=== PATIENT | female | born 1935 | race Caucasian/White ===

== ENCOUNTER 2017-01-30 12:40 | Inpatient (IN) | payer MEDICARE, BC ==
[2017-01-30] VITALS (17 sets, daily range): BP systolic 95–137; BP diastolic 44–99; PULSE 73–92; RESP 26–35; Ht 157.5 cm; Wt 113.0 kg
[~2017-01-30] VITALS: Ht 157.5 cm; Wt 113.0 kg
[2017-01-30] MEDS: DEXTROSE 5%-0.9% NACL 1,000 ML IV SCH (15:22)
[2017-01-30 16:14] LABS: HEMATOCRIT 24.6 % (37.0-47.0); HEMOGLOBIN 8.1 g/dl (12.0-16.0)
--- NOTE | 2017-01-30 16:55 | CONS ---
Date/Time of Note Date/Time of Note DATE: 01/30/17 TIME: 16:55 Assessment/Plan Assessment/Plan Chief Complaint/Hosp Course Impression 1. symptomatic anemia secondary to recurrent GIB: occult blood positive as tested by my rectal exam on 01-30-17 2. sepsis with persistent leukocytosis. Screening CT of chest/abd/pel on 2016 did not demonstrate a clear infectious process other than pneumonia 3. persistent pseudomonas in the airway 4. h/o C diff colitis in 09/2016 per Pt's family members. Although patient hasdiarrhea, C diff tests have been repeatedly negative at [facility]. 5. Respiratory failure s/p tracheostomy 6. Dysphagia s/p PEG tube with dependence Recommendations - plan for emergency EGD and colonoscopy for hemostasis for patient's recurrent GIB - management of patient's sepsis per ID - continue all other supportive care Problems: Consultation Date/Type/Reason Admit Date/Time Jan 30, 2017 at 13:13 Initial Consult Date Type of Consultation: GI 24 HR Interval Summary Free Text/Dictation transferred from [place] [facility] ICU for syptomatic anemia, continued maroon colored stool output. Subjective hx not possible: pt non-verbal Exam/Review of Systems Vital Signs Vitals Vital Signs Date Time Temp Pulse Resp B/P Pulse Ox O2 Delivery O2 Flow Rate FiO2 01/30/17 16:12 40 01/30/17 16:00 78 01/30/17 15:07 120/44 100 Mechanical Ventilator 01/30/17 14:50 97.5 28 Exam Constitutional: obese Head: atraumatic, normocephalic Eyes: nl conjunctiva, nl lids, nl sclera ENMT: mucosa pink and moist, nl external ears & nose, nl lips & teeth, nl nasal mucosa & septum Neck: non-tender, supple Respiratory: normal air movement Cardiovascular: nl pulses, regular rate and rhythm Gastrointestinal: bowel sounds, other (brown stool, guaiac positive), soft Results Result Diagram: 01/30/17 1550 Results 24 hrs Laboratory Tests Test 01/30/17 15:50 Hematocrit 24.6 L Hemoglobin 8.1 L Medications Medications Current Medications Dextrose/Sodium Chloride (D5-NS) 1,000 ml @ 100 mls/hr Q10H IV Last administered on 01/30/17t 15:22; Admin Dose 100 MLS/HR; Start 01/30/17 at 14:00 Pantoprazole (Protonix Iv) 40 mg BID@,18 IV ; Start 01/30/17 at 18:00 EDMUNDO HO MD Jan 30, 2017 16:55
[2017-01-30] MEDS ORDERED: PEG/ELECTROLYTES 4L BTL PO ONE (18:00)
[2017-01-30] MEDS ORDERED: METOCLOPRAMIDE 10 MG INJ IV ONE (18:00)
[2017-01-30] MEDS ORDERED: FLUC100T39 IVPB (19:05)
[2017-01-30] MEDS ORDERED: HYDR-906 PO (19:05)
[2017-01-30] MEDS ORDERED: ASC500 PO (19:05)
[2017-01-30] MEDS ORDERED: SPIR1TAB PO (19:05)
[2017-01-30] MEDS ORDERED: [UNRECOGNIZED DRUG - CODE] IV (19:05)
[2017-01-30] MEDS ORDERED: NYST15OI12 TOP (19:05)
[2017-01-30] MEDS ORDERED: [UNRECOGNIZED DRUG - CODE] IVPB (19:05)
[2017-01-30] MEDS ORDERED: MORP2SYR IV (19:05)
[2017-01-30] MEDS ORDERED: OLAN5TAB5 SL (19:05)
[2017-01-30] MEDS ORDERED: CARSR60 PO (19:05)
[2017-01-30] MEDS ORDERED: FURO40TA4 PO (19:05)
[2017-01-30] MEDS ORDERED: POLY17PO6 PO (19:05)
[2017-01-30] MEDS ORDERED: FOLI-49 PO (19:05)
[2017-01-30] MEDS ORDERED: ONDA4SOL2 IV (19:05)
[2017-01-30] MEDS ORDERED: MERO500V2 IVPB (19:05)
[2017-01-30] MEDS ORDERED: HYDR-3670 IV* (19:05)
[2017-01-30] MEDS ORDERED: NYST1POW22 TOPICAL (19:05)
[2017-01-30] MEDS ORDERED: LISI10TA2 PO (19:05)
[2017-01-30] MEDS ORDERED: ACID1TAB14 PO (19:05)
[2017-01-30] MEDS ORDERED: ZINC50TA2 PO (19:05)
[2017-01-30] MEDS ORDERED: HYDR-902 PO (19:05)
[2017-01-30] MEDS ORDERED: INSU100C3 SQ (19:05)
[2017-01-30] MEDS ORDERED: QUET25TA26 PO (19:05)
[2017-01-30] MEDS ORDERED: MORP1SYR2 IV (19:05)
[2017-01-30] MEDS ORDERED: LANS30CA PO (19:05)
--- NOTE | 2017-01-30 19:31 | CONS ---
Date/Time of Note Date/Time of Note DATE: 01/30/17 TIME: 18:58 Assessment/Plan Assessment/Plan Chief Complaint/Hosp Course assessment/impression - sepsis - persistent leukocytosis. 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 Pt completed an empiric course of pGT and IV metronidazole, however - TEA - VDRF s/p tracheostomy - PEG tube dependence - h/o ileus recommendations - I recommend continuing her on linezolid, meropenem; change fluconazole to caspofungin. I recommend this regimen to cover not only pseudomonas in the airway, but also the intra-abdominal nasrin broadly including yeast, VRE - will repeat pancultures if temp>100,4F management d/w Pt's DOUGH BRAKER the critical care time I took to care for this Pt today was from 1830 to 1900 - h/o lung CA and emphysema Problems: Consultation Date/Type/Reason Admit Date/Time Jan 30, 2017 at 13:13 Date of Consultation: Jan 30, 2017 Type of Consultation: ID Reason for Consultation sepsis Referring Provider: BECKY RUIZ MD Hx of Present Illness This is an 81 yo female with h/o lung CA and GI bleed who was originally admitted at [facility] in 12/2016 due to sepsis. She had a protracted ICU course there. She had pseudomonas pneumonia and funguria, for which she received pip/tazo and fluconazole respectively. She failed to be weaned off from the ventilator and eventually underwent tracheostomy followed by PEG placement. Pt did not tolerate tube feed due to ileus resulting in high residual. At that time, Pt developed severe leukocytosis. Her infectious disease workup was significant for persistent pseudomonas in the airway. While in ICU, the developed loose stool and a rectal tube was placed. Her family indicated that she has h/o GIB in the past. They also mentioned that Pt had C diff in 09/2016. Her C diff test at [facility] was repeatedly negative. She completed a trial of anti-C diff colitis treatment (pGT vancomycin and IV metronidazole). She was eventually transferred to [facility] for further care. Her C diff test at [facility] has been also negative, as recently as 01/27/2017. This week, Pt's WBC level continues to rise. Her GFR also worsened. Her latest pancultures was significant for persistent pseudomonas in the airway, yeast and VRE in urine. Her screening CT of chest/abd/pel on 01/27/2017 did not demonstrate a clear infectious process other than pneumonia. Given her worsening renal function and persistent leukocytosis, Pt was started on broad spectrum antimicrobials there consisting of linezolid, meropenem and fluconazole. Yesterday, Pt's RN at [facility] noted BRBPR. Today, Pt passed dark stool per rectum. Pt was transferred to ICU for close monitoring. Once in ICU, Pt's RN noted brown stool mixed with mucus. No BRBPR was noted. She is scheduled to undergo EGD and colonoscopy tomorrow. I evaluated Pt for continuity of care. At [facility], Subjective hx not possible: pt non-verbal (nearly non-verbal), pt critical, pt critical status Constitutional: chills Respiratory: No shortness of breath Cardiovascular: no complaints Gastrointestinal: no complaints Past Medical History Medical History: cancer, colitis, renal disease, other (GIB) Past Surgical History Past Surgical Hx: cholecystectomy, other (trach, PEG) Social History Alcohol Use: none Smoking Status: Unknown if ever smoked Drug Use: none Exam/Review of Systems Vital Signs Vitals Vital Signs Date Time Temp Pulse Resp B/P Pulse Ox O2 Delivery O2 Flow Rate FiO2 01/30/17 17:30 75 30 112/47 100 Mechanical Ventilator 01/30/17 16:12 40 01/30/17 14:50 97.5 Exam Constitutional: frail, non-verbal, obese Psych: confusion Head: atraumatic, normocephalic Eyes: nl conjunctiva, nl lids ENMT: nl external ears & nose, nl nasal mucosa & septum Neck: other (trach) Respiratory: crackles/rales Cardiovascular: nl pulses, regular rate and rhythm Gastrointestinal: non-tender, other (PEG), soft, No distended Genitourinary - Female: other (FC) Musculoskeletal: No swelling Extremities: edema Neurological: confused, lethargic Skin: ecchymosis Results Result Diagram: 01/30/17 1550 Results 24 hrs Laboratory Tests Test 01/30/17 15:50 Hematocrit 24.6 L Hemoglobin 8.1 L Medications Medications Current Medications Dextrose/Sodium Chloride (D5-NS) 1,000 ml @ 100 mls/hr Q10H IV Last administered on 01/30/17t 15:22; Admin Dose 100 MLS/HR; Start 01/30/17 at 14:00 Pantoprazole (Protonix Iv) 40 mg BID@06,18 IV ; Start 01/30/17 at 18:00 VERN WOODS M.D. Jan 30, 2017 19:12
[2017-01-30] MEDS: PANTOPRAZOLE 40 MG INJ IV SCH (20:05)
[2017-01-30] MEDS ORDERED: CASPOFUNGIN 70 MG in SOD CHLORIDE 0.9% 250 ML IVPB ONE (20:15)
[2017-01-30] MEDS: MEROPENEM 500 MG/100 ML (PMX) 100 ML IVPB SCH (21:32)
[2017-01-30] MEDS: LINEZOLID 600 MG/D5W (PMX) 300 ML IVPB SCH (22:04)
[2017-01-31] VITALS (40 sets, daily range): BP systolic 84–131; BP diastolic 30–71; PULSE 71–95; RESP 16–35
[2017-01-31] MEDS: DEXTROSE 5%-0.9% NACL 1,000 ML IV SCH ×3 (02:36→19:24)
[2017-01-31] MEDS ORDERED: PEG/ELECTROLYTES 4L BTL PO ONE (03:00)
[2017-01-31 04:59] LABS: ADD SCAN DIFF NO
[2017-01-31 05:07] LABS: AADO2 Arterial 103.8 mmHg (7.0-24.0); Allen Test ACCEPTAB; Arterial Base Excess -4.1 mmol/L (-3.0-3); Arterial COHb 0.3 % (0.0-3.0); Arterial Fraction of Oxyhgb 96.4 % (93.0-99.0); Arterial HCO3 21.2 mmol/L (22.0-26.0); Arterial MetHb 0.6 % (0.0-1.5); Arterial Total Hemglobin 9.5 g/dl (12.0-18.0); MODE VENT-AC
[2017-01-31] MEDS: PANTOPRAZOLE 40 MG INJ IV SCH (05:08)
[2017-01-31 05:19] LABS: ABNORMAL IP MESSAGE 1; HEMATOCRIT 25.3 % (37.0-47.0); HEMOGLOBIN 8.3 g/dl (12.0-16.0); MEAN CORPUSCULAR HEMOGLOBIN 29.7 pg (29.0-33.0); MEAN CORPUSCULAR HGB CONC 32.8 g/dl (32.0-37.0); MEAN CORPUSCULAR VOLUME 90.7 fl (82.0-101.0); PLATELET COUNT 392 10^3/UL (140-415); RED BLOOD COUNT 2.79 10^6/ul (4.20-5.40); RED CELL DISTRIBUTION WIDTH 19.9 % (11.5-14.5); WHITE BLOOD COUNT 29.3 10^3/ul (4.8-10.8)
[2017-01-31 05:25] LABS: INR 1.19; PROTIME 15.2 Sec (12.2-14.2); PT RATIO 1.2
[2017-01-31 05:26] LABS: PARTIAL THROMBOPLASTIN TIME 32.9 Sec (25.0-35.0)
[2017-01-31 05:28] LABS: POTASSIUM 4.9 mmol/L (3.5-5.1)
[2017-01-31 05:30] LABS: CREATININE 3.22 mg/dl (0.44-1.00)
[2017-01-31 05:31] LABS: CALCIUM 8.5 mg/dl (8.4-10.2); PHOSPHORUS 3.8 mg/dl (2.5-4.9)
[2017-01-31] MEDS: MEROPENEM 500 MG/100 ML (PMX) 100 ML IVPB SCH ×2 (08:13→20:50)
--- NOTE | 2017-01-31 10:02 | HP ---
Date/Time of Note Date/Time of Note DATE: 01/31/17 TIME: 09:58 Assessment/Plan VTE Prophylaxis VTE Prophylaxis Intervention: heparin Lines/Catheters IV [facility]ter Type (from [facility]): Peripheral IV Urinary Cath still in place: Yes Reason Cath still needed: urinary retention Assessment/Plan Chief Complaint/Hosp Course 1. Active GIB- h/h stable, endoscopy today, cont IV PPI, watch h/h. 2. chronic resp failure- on vent, cxr and abg reveiwed. 3. dysphagia- hold feeds for now 4. htn 5. encephalopathy-at baseline 6. anemia- sc to blood loss, monitor, no transfusion for now, GI following. Problems: HPI/ROS Admit Date/Time Admit Date/Time Jan 30, 2017 at 13:13 Hx of Present Illness 82 y/o female was sent from [facility] after noted to have actibe recatl bleeding. On transfer to ICU had no longer bleeding. Pt. was seen by GI and scheduled for endospcopy. H/H has remianed stable on IV protonix Pt. now comfortable on vent, awake, hemodynamically stable. ROS Constitutional: no complaints ENT: no complaints Respiratory: no complaints, No shortness of breath Cardiovascular: no complaints Gastrointestinal: blood, diarrhea, no complaints, passing stool Endocrine: no complaints Psychological: confusion PMH/Family/Social Past Medical History Medical History: cancer, colitis, renal disease, other (GIB) Past Surgical History Past Surgical Hx: cholecystectomy, other (trach, PEG) Social History Alcohol Use: none Smoking Status: Unknown if ever smoked Drug Use: none Exam/Review of Systems Vital Signs Vitals Vital Signs Date Time Temp Pulse Resp B/P Pulse Ox O2 Delivery O2 Flow Rate FiO2 01/31/17 08:00 80 01/31/17 07:30 99.1 27 107/51 100 Mechanical Ventilator 01/31/17 05:23 35 Intake and Output 01/30/17 01/30/17 01/31/17 15:00 23:00 07:00 Intake Total 2000 ml 2000 ml Output Total 150 ml 120 ml Balance 1850 ml 1880 ml Exam Constitutional: alert, non-verbal Psych: no complaints Eyes: EOMI, PERRL, nl conjunctiva, nl lids, nl sclera Neck: non-tender, other (Trach midline), supple Respiratory: diminished breath sounds Gastrointestinal: non-tender, other (G-Tubne in place), soft Genitourinary - Male: No CVA tenderness, No discharge, No nl penis, No nl scrotum, No other Extremities: normal pulses Labs Result Diagram: 01/31/1743101/31/17431 Medications Medications Current Medications Dextrose/Sodium Chloride (D5-NS) 1,000 ml @ 100 mls/hr Q10H IV Last administered on 01/31/17 02:36; Admin Dose 100 MLS/HR; Start 01/30/17 at 14:00 Pantoprazole 40 mg 40 mg BID@06,18 IV Last administered on 01/31/17 05:08; Admin Dose 40 MG; Start 01/30/17 at 18:00 Meropenem 100 ml @ 200 mls/hr Q12 IVPB Last administered on 01/31/17 08:13; Admin Dose 200 MLS/HR; Start 01/30/17 at 21:00 Caspofungin 50 mg/ Sodium Chloride 250 ml @ 250 mls/hr Q24H IVPB ; Start at 18:00 Linezolid (Zyvox 600mg/D5W (Pmx)) 300 ml @ 300 mls/hr Q12 IVPB Last administered on 01/30/17 22:04; Admin Dose 300 MLS/HR; Start 01/30/17 at 21:00 BECKY RUIZ MD Jan 31, 2017 10:02
[2017-01-31] MEDS: LINEZOLID 600 MG/D5W (PMX) 300 ML IVPB SCH ×2 (10:28→21:39)
[2017-01-31 10:32] LABS: LYMPHOCYTES # 2.3 10^3/ul (0.8-2.9); MONOCYTE # 1.2 10^3/ul (0.3-0.9); MYELOCYTES # 0.9; NEUTROPHIL # 18.8 10^3/ul (1.6-7.5)
--- NOTE | 2017-01-31 11:31 | OPR ---
Date/Time of Note Date/Time of Note DATE: 01/31/17 TIME: 11:27 Operative Report Free Text/Dictation Impression: 1. mild distal esophagitis 2. intact G-tube bumper 3. external anal ear tags and hemorrhoids 4. internal hemorrhoids Recommendation: 1. no active GI bleeding 2. consider surgical eval for hemorrhoids as it is the most likely cause if it is GI bleeding 3. consider Block Sawyer eval to r/o Block Sawyer causes of bleeding as 2 colonoscopies done at different facility by 2 different endoscopists did not reveal source of patient' s GI bleed. One will need to consider Block Sawyer bleeding. Procedure Date: Jan 31, 2017 Preoperative Diagnosis hematochezia, anemia requiring blood transfusion Operation Performed EGD, colonoscopy with biopsies Anesthesia: MAC Estimated Blood Loss: minimal Complications: None Pt Condition Post Procedure: stable Disposition: other (ICU bed) Indications hematochezia, anemia requiring blood transfusion Operative Findings EGD: mild distal esophagitis. Colonoscopy: 1. moderate sized internal hemorrhoids 2. external anal ear-tags and hemorrhoids 3. scattered diverticula on left colon Procedure Description After informed consent and time out, we inserted an adult EGD scope from the mouth and advanced to the second portion of the duodenum. Retroflexion was performed in the body of stomach revealing cardia and fundus. Air was then suctioned out while evaluating the esophagus. At the completion of the EGD, patient was turned around for colonoscopy. Rectal exam showed elephant ear tags and thrombosed external hemorrhoids. I then inserted a colonoscope from the rectum and advanced to the cecum at 80 cm. I then slowly withdraw the colonoscope, examined the colon circumferentially, and suctioned out air. There were few scatter diverticula in the left colon which were not bleeding. There were few small grayish discolorization in the transverse colon and right colon that were not bleeding and of unclear significance. Retroflexion was performed in the rectum revealing moderate sized internal hemorrhoids. EDMUNDO HO MD Jan 31, 2017 11:31
[2017-01-31] MEDS ORDERED: PROPOFOL 20 ML ONE (12:16)
[2017-01-31] MEDS ORDERED: HYDROCODONE/APAP (5/325) TAB GTB PRN (13:00)
[2017-01-31] MEDS ORDERED: POLYETHYLENE GLYCOL 17 GM PACKET GTB PRN (13:00)
[2017-01-31] MEDS ORDERED: ONDANSETRON 4 MG INJ IV PRN (13:00)
[2017-01-31] MEDS ORDERED: QUETIAPINE 25 MG TAB GTB PRN (13:00)
[2017-01-31] MEDS ORDERED: hydrALAzine 20 MG INJ IV PRN (13:00)
[2017-01-31] MEDS ORDERED: morphine 2 MG INJ IV PRN ×2 (13:00)
[2017-01-31] MEDS: HYDROCODONE/APAP (5/325) TAB GTB PRN (13:42)
[2017-01-31] MEDS ORDERED: DEXTROSE 50% 50 ML SYRINGE IV PRN ×2 (14:00)
[2017-01-31] MEDS ORDERED: GLUCOSE GEL 15 GRAM TUBE BUCCAL PRN (14:00)
[2017-01-31] MEDS ORDERED: GLUCOSE GEL 15 GRAM TUBE PO PRN ×2 (14:00)
[2017-01-31] MEDS ORDERED: GLUCAGON 1 MG INJ IM PRN (14:00)
[2017-01-31] MEDS: LACTOBACILLUS CHEW TAB GTB SCH ×2 (14:17→20:43)
--- NOTE | 2017-01-31 16:03 | CONS ---
DATE OF ADMISSION: 01/30/2017 DATE OF CONSULTATION: 01/31/2017 TYPE OF CONSULTATION: Pulmonary. HISTORY OF PRESENT ILLNESS: Briefly, this is an 81-year-old lady with multiple medical problems inc luding chronic respiratory failure on mechanical ventilation, encephalopathy, hypertension, COPD, re sident of [facility] who was transferred yesterday due to rectal bleeding. The pat ient has remained hemodynamically stable thus far during her ICU stay and her hemoglobin has been re latively stable as well. PAST MEDICAL HISTORY: As noted above. In addition, history of cancer, colitis, renal disease. PAST SURGICAL HISTORY: Cholecystectomy, PEG and trach. SOCIAL HISTORY: No tobacco, alcohol or illicit drug use. FAMILY HISTORY: Noncontributory. REVIEW OF SYSTEMS: Unable to obtain. PHYSICAL EXAMINATION: GENERAL: Generally elderly female, trach dependent on mechanical ventilation. VITAL SIGNS: Blood pressure is 126/46, heart rate is 77, oxygen saturation 100% on 35% FIO2. HEENT: Tracheostomy site is clear. There is no drainage or purulence, no lymphadenopathy. CARDIOVASCULAR: Regular rate and rhythm, S1 and S2, 2/6 systolic murmur heard at the apex. CHEST: There is coarse breath sounds and some rhonchi heard bilaterally. ABDOMEN: Soft. G-tube site is intact. No hepatosplenomegaly. EXTREMITIES: There is normal pulses and no cyanosis. LABORATORY DATA: WBC is 29.3, hemoglobin 8.3, platelets are 392, BUN is 80, creatinine is 3.2. Coa gs are 1.12. ABG: pH is 7.35, pCO2 is 40, pO2 is 100 on 35% FIO2. IMPRESSION: 1. Hematochezia, possibly due to a brisk upper gastrointestinal versus lower GI bleed. Currently, H and H has been stable. The patient remains on IV PPI and is being evaluated for endoscopy by anita roenterology. 2. Ventilator-dependent respiratory failure appears to be stable from that perspective. 3. Leukocytosis, etiology unclear. It appears that this is somewhat chronic. In view of the patie nt's clinical stability, must consider Clostridium difficile colitis. 4. Chronic kidney disease. 5. History of lung cancer status post lobectomy. 6. Anemia. 7. Hypertension, possible history of congestive heart failure. RECOMMENDATIONS: 1. Serial H and H's. 2. Continue mechanical ventilatory support. 3. PPI drip. 4. Await upper endoscopy and colonoscopy by GI. 5. Will hold tube feeds for the time being. Dictated By: MYCHAL CORNEJO MD NK/NTS Conf#: [id number] DID#: [id number] CC: JD TORRES MD;*EndCC*
--- NOTE | 2017-01-31 16:49 | CONS ---
GIULIANA GARCIA SOFTWARE ASSET MANAGER 01/31/17 1648: Date/Time of Note Date/Time of Note DATE: 01/31/17 TIME: 16:42 Assessment/Plan Assessment/Plan Chief Complaint/Hosp Course Assessment/Impression: - sepsis - persistent leukocytosis. 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 Pt completed an empiric course of pGT and IV metronidazole, however - mild distal esophagitis S/p EGD 01/31/17 - moderate sized internal hemorrhoids, external anal ear-tags and hemorrhoids, scattered diverticula on left colon S/p colonoscopy 01/31/17 - TEA - VDRF with tracheostomy - PEG tube dependence - h/o ileus - h/o lung CA and emphysema - chronic encephalopathy Recommendations: - continue linezolid and meropenem - continue caspofungin (01/30/17-); s/p fluconazole. This regimen is recommended to cover not only pseudomonas in the airway, but also the intra-abdominal nasrin broadly including yeast, VRE - repeat pancultures if temp>100.4 F - management d/w CHANGE MANAGEMENT ANALYST - Above d/w Dr. Desai - Critical care time spent: 35 minutes Problems: Consultation Date/Type/Reason Admit Date/Time Jan 30, 2017 at 13:13 Initial Consult Date 01/30/17 Type of Consultation: Infectious Disease Referring Provider: BECKY RUIZ MD 24 HR Interval Summary Free Text/Dictation S/p EGD and colonoscopy today with no active bleeding noted per RN Yordy. ROS limited d/t chronic encephalopathy; Pt remains non-communicative; afebrile. Exam/Review of Systems Vital Signs Vitals Vital Signs Date Time Temp Pulse Resp B/P Pulse Ox O2 Delivery O2 Flow Rate FiO2 01/31/17 16:00 84 01/31/17 14:00 35 91/61 100 Mechanical Ventilator 01/31/17 11:30 35 01/31/17 11:00 98.8 Intake and Output 01/30/17 01/30/17 01/31/17 15:00 23:00 07:00 Intake Total 2000 ml 2100 ml Output Total 150 ml 120 ml Balance 1850 ml 1980 ml Exam Constitutional: alert, frail, obese (morbidly obese), well developed Head: atraumatic, normocephalic Eyes: nl conjunctiva ENMT: nl external ears & nose Neck: other (tracheostomy midline without leak), supple Respiratory: diminished breath sounds, normal air movement, other (coarse breath sounds) Cardiovascular: regular rate and rhythm Gastrointestinal: bowel sounds, non-tender, other (G- tube clamped and intact) , soft Genitourinary - Female: other (ramon catheter intact with clear yellow urine) Musculoskeletal: muscle weakness, other (bed bound) Extremities: edema (Right hand and BLE), other (DP difficult to palpate), pitting pedal edema Neurological: confused, lethargic, other (Opens eyes to verbal and tactile stimuli; + tracking; no commands) Results Result Diagram: 01/31/17 0432 01/31/17 0432 Results 24 hrs Laboratory Tests Test 01/31/17 04:32 01/31/17 04:50 01/31/17 05:00 Anion Gap 20 H Band Neutrophils % 19.0 H Basophils # Basophils % Blood Urea Nitrogen 80 H Calcium Level 8.5 Carbon Dioxide Level 22 Chloride Level 97 Creatinine 3.22 H Differential Comment MANUAL DIFF Eosinophils # Eosinophils % Glucose Level 96 Hematocrit 25.3 L Hemoglobin 8.3 L Lymphocytes # 2.3 Lymphocytes % 8.0 L Magnesium Level 2.0 Mean Corpuscular Hemoglobin 29.7 Mean Corpuscular Hemoglobin Concent 32.8 Mean Corpuscular Volume 90.7 Mean Platelet Volume 11.0 H Metamyelocytes # 0.6 Metamyelocytes % 2.0 H Monocytes # 1.2 H Monocytes % 4.0 Myelocytes # 0.9 Myelocytes % 3.0 H Neutrophils # 18.8 H Neutrophils % 64.0 Nucleated Red Blood Cells # Nucleated Red Blood Cells % Phosphorus Level 3.8 Platelet Count 392 # Potassium Level 4.9 Red Blood Count 2.79 L Red Cell Distribution Width 19.9 H Sodium Level 134 L White Blood Count 29.3 #H Activated Partial Thromboplast Time 32.9 INR International Normalized Ratio 1.19 Prothrombin Time 15.2 H Prothrombin Time Ratio 1.2 Arterial Blood HCO3 21.2 L Arterial Blood Base Excess -4.1 L Arterial Blood Oxygen Saturation 97.3 [place] Test ACCEPTAB Arterial Blood Gas Puncture Site Right Radial Arterial Blood Carboxyhemoglobin 0.3 Arterial Blood Date Drawn 01/31/2017 4:38:59 AM Arterial Blood Methemoglobin 0.6 Arterial Blood pCO2 (Temp correct) 39.5 Arterial Blood pH (Temp corrected) 7.347 L Arterial Blood pO2 (Temp corrected) 99.8 H Blood Gas A-a O2 Differential 103.8 H Blood Gas Actual Respiration Rate 35 Blood Gas Inspiratory Pressure 43.0 Blood Gas Low PEEP Setting 5.0 Blood Gas Modality VENT-AC Blood Gas Notified Time 01/31/2017 5:06:48 AM Blood Gas Notified Whom JMD Blood Gas Respiration Rate 35.0 Blood Gas Specimen Source Blood arterial Blood Gas Temperature 37.0 Blood Gas Tidal Volume 450.0 FiO2 35.0 Oxyhemoglobin Percent 96.4 Total Hemoglobin 9.5 L Medications Medications Current Medications Dextrose/Sodium Chloride 1,000 ml @ 100 mls/hr Q10H IV Last administered on 10:29; Admin Dose 100 MLS/HR; Start 01/30/17 at 14:00 Meropenem 100 ml @ 200 mls/hr Q12 IVPB Last administered on 01/31/17 08:13; Admin Dose 200 MLS/HR; Start 01/30/17 at 21:00 Caspofungin 50 mg/ Sodium Chloride 250 ml @ 250 mls/hr Q24H IVPB ; Start at 18:00 Linezolid (Zyvox 600mg/D5W (Pmx)) 300 ml @ 300 mls/hr Q12 IVPB Last administered on 01/31/17 10:28; Admin Dose 300 MLS/HR; Start 01/30/17 at 21:00 Lansoprazole (Prevacid) 30 mg BID@06,18 GTB ; Start 01/31/17 at 18:00 Ascorbic Acid (Vitamin C) 500 mg DAILY GTB ; Start 02/01/17 at 09:00 Folic Acid (Folic Acid) 1 mg DAILY GTB ; Start 02/01/17 at 09:00 Hydralazine HCl (Apresoline) 10 mg Q6H PRN IV ELEVATED BLOOD PRESSURE; Start at 13:00 Acetaminophen/ Hydrocodone Bitart ([place] (5/325)) 1 tab Q6H PRN GTB PAIN LEVEL 1-5 Last administered on 01/31/17 13:42; Admin Dose 1 TAB; Start 01/31/17 at 13: 00 Acetaminophen/ Hydrocodone Bitart ([place] (5/325)) 2 tab Q6H PRN GTB PAIN LEVEL 6-10; Start 01/31/17 at 13:00 Insulin Aspart (Novolog Insulin Pen) NOVOLOG *MILD* ALGORITHM Q6 SC ; Start 01/31 at 18:00 Lactobacillus Acidoph/Bulgaricus (Floranex) 1 tab TID GTB Last administered on 01/31/17 14:17; Admin Dose 1 TAB; Start 01/31/17 at 13:00 Lisinopril (Zestril) 10 mg BID GTB ; Start 01/31/17 at 21:00 Morphine Sulfate (morphine) 1 mg Q2H PRN IV PAIN LEVEL 1-5; Start 01/31/17 at 13 :00 Morphine Sulfate (morphine) 2 mg Q2H PRN IV SEVERE PAIN LEVEL 7-10; Start at 13:00 Nystatin (Nystatin Cr) 1 applic BID TOP ; Start 01/31/17 at 21:00 Nystatin (Nystatin Powder) 1 applic BID TOP ; Start 01/31/17 at 21:00 Olanzapine (Zyprexa Zydis) 2.5 mg BID SL ; Start 01/31/17 at 21:00 Ondansetron HCl (Zofran Inj) 4 mg Q6H PRN IV NAUSEA AND/OR VOMITING; Start 01/31 at 13:00 Quetiapine Fumarate (Seroquel) 25 mg Q6 PRN GTB PSYCHOSIS; Start 01/31/17 at 13: 00 Polyethylene Glycol (Miralax) 17 gm DAILY PRN GTB CONSTIPATION; Start 01/31/17 at 13:00 Zinc Sulfate (Zinc Sulfate) 220 mg DAILY GTB ; Start 02/01/17 at 09:00 Miscellaneous Information 1 ea NOTE XX ; Start 01/31/17 at 14:00 Glucose (Glutose) 15 gm Q15M PRN PO DECREASED GLUCOSE; Start 01/31/17 at 14:00 Glucose (Glutose) 22.5 gm Q15M PRN PO DECREASED GLUCOSE; Start 01/31/17 at 14:00 Dextrose (D50w Syringe) 25 ml Q15M PRN IV DECREASED GLUCOSE; Start 01/31/17 at 14:00 Dextrose (D50w Syringe) 50 ml Q15M PRN IV DECREASED GLUCOSE; Start 01/31/17 at 14:00 Glucagon (Glucagen) 1 mg Q15M PRN IM DECREASED GLUCOSE; Start 01/31/17 at 14:00 Glucose (Glutose) 15 gm Q15M PRN BUCCAL DECREASED GLUCOSE; Start 01/31/17 at 14: 00 Diltiazem HCl (Cardizem) 30 mg Q6 GTB ; Start 01/31/17 at 18:00 Procedures Procedures Abdomen X-ray 01/29/17: 1. Previous right upper quadrant abdominal surgery. A gastrostomy tube is seen to be in place. 2. The bowel gas pattern reflects a mild ileus. 3. Interstitial infiltrate seen at the left lung base. TTE 01/21/17: 1. Normal left ventricular systolic function. Normal left ventricular cavity size. Mild concentric left ventricular hypertrophy. Ejection fraction is visually estimated at 65 -70 %. 2. The left atrium is normal in size. 3. Normal appearance and function of the mitral valve with trace physiologic regurgitation. 4. Normal appearance of the aortic valve. No significant aortic stenosis or insufficiency. 5. Normal appearance of the tricuspid valve. Estimated peak PA systolic pressure 46 mmHg. There is mild tricuspid regurgitation. 6. Inferior vena cava without respiratory collapse, however, patient on ventilator. VERN DESAI M.D. 02/01/17 1018: Assessment/Plan Assessment/Plan Additional Assessment/Plan Lloyd attestation: I discussed the management with TELLO Garcia and agree with above Exam/Review of Systems Results Result Diagram: 01/31/17 0432 01/31/17 0432 GIULIANA GARCIA NP Jan 31, 2017 16:48 VERN DESAI M.D. Feb 01, 2017 10:18
[2017-01-31] MEDS ORDERED: DILTIAZEM (SR) 90 MG CAP PO SCH (18:00)
[2017-01-31] MEDS: INSULIN ASPART [NOVOLOG] 3 ML PEN SC SCH ×2 (18:00→23:27)
[2017-01-31] MEDS: DILTIAZEM 30 MG TAB GTB SCH ×2 (18:02→23:27)
[2017-01-31] MEDS: LANSOPRAZOLE 30 MG CAP GTB SCH (18:02)
[2017-01-31] MEDS: FUROSEMIDE 40 MG TAB GTB SCH (18:02)
[2017-01-31] MEDS: CASPOFUNGIN 50 MG in SOD CHLORIDE 0.9% 250 ML IVPB SCH (18:06)
[2017-01-31] MEDS: SPIRONOLACTONE 25 MG TAB NGT SCH (18:13)
[2017-01-31] MEDS: OLANZAPINE (ODT) 5 MG TAB SL SCH (20:43)
[2017-01-31] MEDS: NYSTATIN 30 GM POWDER BTL TOP SCH (20:44)
[2017-01-31] MEDS: NYSTATIN 15 GM CR TOP SCH (20:44)
[2017-01-31] MEDS ORDERED: LISINOPRIL 10 MG TAB GTB SCH (21:00)
[2017-02-01] VITALS (36 sets, daily range): BP systolic 77–140; BP diastolic 34–104; PULSE 68–96; RESP 14–35
[2017-02-01 04:49] LABS: AADO2 Arterial 84.3 mmHg (7.0-24.0); Allen Test ACCEPTAB; Arterial Base Excess -6.3 mmol/L (-3.0-3); Arterial COHb 0 % (0.0-3.0); Arterial Fraction of Oxyhgb 97.4 % (93.0-99.0); Arterial HCO3 18.4 mmol/L (22.0-26.0); Arterial MetHb 0.7 % (0.0-1.5); Arterial Total Hemglobin 8.6 g/dl (12.0-18.0); MODE VENT - AC
[2017-02-01] MEDS: SPIRONOLACTONE 25 MG TAB NGT SCH ×2 (05:27→18:00)
[2017-02-01] MEDS: LANSOPRAZOLE 30 MG CAP GTB SCH ×2 (05:27→18:00)
[2017-02-01] MEDS: FUROSEMIDE 40 MG TAB GTB SCH (05:27)
[2017-02-01] MEDS: DEXTROSE 5%-0.9% NACL 1,000 ML IV SCH (05:28)
[2017-02-01] MEDS: INSULIN ASPART [NOVOLOG] 3 ML PEN SC SCH ×3 (05:48→17:51)
[2017-02-01] MEDS: DILTIAZEM 30 MG TAB GTB SCH ×3 (05:58→18:00)
[2017-02-01 06:01] LABS: ADD SCAN DIFF NO
[2017-02-01 06:04] LABS: ABNORMAL IP MESSAGE 1; HEMATOCRIT 23.1 % (37.0-47.0); HEMOGLOBIN 7.6 g/dl (12.0-16.0); MEAN CORPUSCULAR HEMOGLOBIN 30.3 pg (29.0-33.0); MEAN CORPUSCULAR HGB CONC 32.9 g/dl (32.0-37.0); MEAN PLATELET VOLUME 10.9 fl (7.4-10.4); PLATELET COUNT 351 10^3/UL (140-415); RED BLOOD COUNT 2.51 10^6/ul (4.20-5.40); RED CELL DISTRIBUTION WIDTH 20.4 % (11.5-14.5); WHITE BLOOD COUNT 26.1 10^3/ul (4.8-10.8)
[2017-02-01 06:34] LABS: POTASSIUM 4.1 mmol/L (3.5-5.1)
[2017-02-01 06:37] LABS: CREATININE 3.02 mg/dl (0.44-1.00)
[2017-02-01 06:38] LABS: CALCIUM 8.2 mg/dl (8.4-10.2)
--- NOTE | 2017-02-01 07:02 | RADRPT ---
PROCEDURE: XR Chest. CLINICAL INDICATION: Respiratory failure TECHNIQUE: Portable single view of the chest COMPARISON: 01/27 FINDINGS: Tracheostomy tube again overlies the airway. The heart size remains slightly enlarged. Aortic calc ification is seen. Lung volumes are slightly improved. Coarse lung markings are again seen. No la rge effusion is evident. Aortic calcification. IMPRESSION: Slightly improved lung volumes. Otherwise stable exam. RPTAT: HLBE Coleen Mcdonald Physician Date Time Electronically viewed and signed by Coleen Mcdonald, Physician on 02/01/2017 07:01 LE/
--- NOTE | 2017-02-01 07:52 | CONS ---
Date/Time of Note Date/Time of Note DATE: 02/01/17 TIME: 07:47 Assessment/Plan Assessment/Plan Additional Assessment/Plan Ventilator settings; AC of 35, tidal volume 450, PEEP of 5, 35% FiO2. Chest x-ray was reviewed from today which is showing volume loss in the left lower lobe. There is bilateral interstitial pattern present. Assessment recommendations; next 1. Patient admitted for lower GI bleed which has been attributed to hemorrhoids. Next 2. Slight drop in hematocrit. 3. Chronic respiratory failure with severe hypercapnia owing to end-stage COPD as well as history of left lower lobectomy due to lung malignancy. 4. Renal failure. 5. CHF. Which is clinically compensated. 6. Stable hypertension. Next 7. Prior history of cholecystectomy, PEG tube placement as well as tracheostomy. 8. Mild anoxic enthesopathy. 9. Mild metabolic acidosis likely attributed to underlying renal insufficiency. Continue current treatment. Add sodium bicarb 650 mg 3 times daily via PEG tube. If there is any further drop in hematocrit patient will need to have a blood transfusion. Overall prognosis remains very poor. Consultation Date/Type/Reason Admit Date/Time Jan 30, 2017 at 13:13 Initial Consult Date 01/30/17 Type of Consultation: Pulmonary/critical care Referring Provider: BECKY RUIZ MD 24 HR Interval Summary Free Text/Dictation Patient condition remains stable. She is awake on ventilator via tracheostomy. No untoward events reported. General examination; elderly lady, on ventilator via tracheostomy awake currently in no distress. Exam/Review of Systems Vital Signs Vitals Vital Signs Date Time Temp Pulse Resp B/P Pulse Ox O2 Delivery O2 Flow Rate FiO2 02/01/17 07:26 95 35 100 35 02/01/17 06:00 105/34 Mechanical Ventilator 02/01/17 04:00 98.1 Intake and Output 01/31/17 01/31/17 02/01/17 15:00 23:00 07:00 Intake Total 1050 ml 1015 ml 585 ml Output Total 123 ml 150 ml 125 ml Balance 927 ml 865 ml 460 ml Exam H EENT examination; supple neck, JVD difficult to see because of short neck. No thyromegaly. No neck masses. Trachea ostomy in place with clean insertion site. Pupils are midsize and reactive to light bilaterally. Patient does not multiple carious teeth. No neck bruits. Chest examination; diminished but clear breath sounds bilaterally. S1-S2 audible, no murmurs. Regular rhythm. Abdomen examination; soft, protuberant. No organomegaly. G-tube in place. Bowel sounds audible. Extremity examination; 1+ pitting edema involving lower extremities bilaterally. BUCKLE INSPECTOR examination; patient is awake. Follows very simple commands like moving arms. Results Result Diagram: 02/01/17 0535 02/01/17 0535 Results 24 hrs Laboratory Tests Test 01/31/17 18:04 01/31/17 23:24 02/01/17 05:00 02/01/17 05:34 Bedside Glucose 123 152 135 Arterial Blood HCO3 18.4 L Arterial Blood Base Excess -6.3 L Arterial Blood Oxygen Saturation 98.1 [place]olome Test ACCEPTAB Arterial Blood Gas Puncture Site Right Radial Arterial Blood Carboxyhemoglobin 0 Arterial Blood Date Drawn 02/01/2017 4:27:18 AM Arterial Blood Methemoglobin 0.7 Arterial Blood pCO2 (Temp correct) 33.3 L Arterial Blood pH (Temp corrected) 7.361 Arterial Blood pO2 (Temp corrected) 126.5 H Blood Gas A-a O2 Differential 84.3 H Blood Gas Actual Respiration Rate 35 Blood Gas Inspiratory Pressure 41.0 Blood Gas Low PEEP Setting 5.0 Blood Gas Modality VENT - AC Blood Gas Notified Time 02/01/2017 4:49:09 AM Blood Gas Notified Whom RTR Blood Gas Respiration Rate 35.0 Blood Gas Specimen Source Blood arterial Blood Gas Temperature 37.0 Blood Gas Tidal Volume 450.0 FiO2 35.0 Oxyhemoglobin Percent 97.4 Total Hemoglobin 8.6 L Test 02/01/17 05:35 Anion Gap 20 H Basophils # 0.0 Basophils % 0.2 Blood Urea Nitrogen 78 H Calcium Level 8.2 L Carbon Dioxide Level 18 L Chloride Level 98 Creatinine 3.02 H Eosinophils # 0.1 Eosinophils % 0.2 Glucose Level 108 Hematocrit 23.1 L Hemoglobin 7.6 L Lactic Acid Level 1.4 Lymphocytes # 1.8 Lymphocytes % 6.7 L Mean Corpuscular Hemoglobin 30.3 Mean Corpuscular Hemoglobin Concent 32.9 Mean Corpuscular Volume 92.0 Mean Platelet Volume 10.9 H Monocytes # 1.2 H Monocytes % 4.5 Neutrophils # 17.7 H Neutrophils % 67.6 Nucleated Red Blood Cells # 0.0 Nucleated Red Blood Cells % 0.2 H Platelet Count 351 Potassium Level 4.1 Red Blood Count 2.51 L Red Cell Distribution Width 20.4 H Sodium Level 132 L White Blood Count 26.1 H Medications Medications Current Medications Meropenem 100 ml @ 200 mls/hr Q12 IVPB Last administered on 01/31/17 20:50; Admin Dose 200 MLS/HR; Start 01/30/17 at 21:00 Caspofungin 50 mg/ Sodium Chloride 250 ml @ 250 mls/hr Q24H IVPB Last administered on 01/31/17 18:06; Admin Dose 250 MLS/HR; Start 01/31/17 at 18:00 Linezolid (Zyvox 600mg/D5W (Pmx)) 300 ml @ 300 mls/hr Q12 IVPB Last administered on 01/31/17 21:39; Admin Dose 300 MLS/HR; Start 01/30/17 at 21:00 Lansoprazole (Prevacid) 30 mg BID@06,18 GTB Last administered on 02/01/17 05:27 ; Admin Dose 30 MG; Start 01/31/17 at 18:00 Ascorbic Acid (Vitamin C) 500 mg DAILY GTB ; Start 02/01/17 at 09:00 Folic Acid (Folic Acid) 1 mg DAILY GTB ; Start 02/01/17 at 09:00 Hydralazine HCl (Apresoline) 10 mg Q6H PRN IV ELEVATED BLOOD PRESSURE; Start at 13:00 Acetaminophen/ Hydrocodone Bitart ([place] (5/325)) 1 tab Q6H PRN GTB PAIN LEVEL 1-5 Last administered on 01/31/17 13:42; Admin Dose 1 TAB; Start 01/31/17 at 13: 00 Acetaminophen/ Hydrocodone Bitart ([place] (5/325)) 2 tab Q6H PRN GTB PAIN LEVEL 6-10; Start 01/31/17 at 13:00 Insulin Aspart (Novolog Insulin Pen) NOVOLOG *MILD* ALGORITHM Q6 SC Last administered on 01/31/17 23:27; Admin Dose 1 UNIT; Start 01/31/17 at 18:00 Lactobacillus Acidoph/Bulgaricus (Floranex) 1 tab TID GTB Last administered on 01/31/17 20:43; Admin Dose 1 TAB; Start 01/31/17 at 13:00 Lisinopril (Zestril) 10 mg BID GTB ; Start 01/31/17 at 21:00; Status Future Hold Morphine Sulfate (morphine) 1 mg Q2H PRN IV PAIN LEVEL 1-5; Start 01/31/17 at 13 :00 Morphine Sulfate (morphine) 2 mg Q2H PRN IV SEVERE PAIN LEVEL 7-10; Start at 13:00 Nystatin (Nystatin Cr) 1 applic BID TOP Last administered on 01/31/17 20:44; Admin Dose 1 APPLIC; Start 01/31/17 at 21:00 Nystatin (Nystatin Powder) 1 applic BID TOP Last administered on 01/31/17 20:44 ; Admin Dose 1 APPLIC; Start 01/31/17 at 21:00 Olanzapine (Zyprexa Zydis) 2.5 mg BID SL Last administered on 01/31/17 20:43; Admin Dose 2.5 MG; Start 01/31/17 at 21:00 Ondansetron HCl (Zofran Inj) 4 mg Q6H PRN IV NAUSEA AND/OR VOMITING; Start 01/31 at 13:00 Quetiapine Fumarate (Seroquel) 25 mg Q6 PRN GTB PSYCHOSIS; Start 01/31/17 at 13: 00 Polyethylene Glycol (Miralax) 17 gm DAILY PRN GTB CONSTIPATION; Start 01/31/17 at 13:00 Zinc Sulfate (Zinc Sulfate) 220 mg DAILY GTB ; Start 02/01/17 at 09:00 Miscellaneous Information 1 ea NOTE XX ; Start 01/31/17 at 14:00 Glucose (Glutose) 15 gm Q15M PRN PO DECREASED GLUCOSE; Start 01/31/17 at 14:00 Glucose (Glutose) 22.5 gm Q15M PRN PO DECREASED GLUCOSE; Start 01/31/17 at 14:00 Dextrose (D50w Syringe) 25 ml Q15M PRN IV DECREASED GLUCOSE; Start 01/31/17 at 14:00 Dextrose (D50w Syringe) 50 ml Q15M PRN IV DECREASED GLUCOSE; Start 01/31/17 at 14:00 Glucagon (Glucagen) 1 mg Q15M PRN IM DECREASED GLUCOSE; Start 01/31/17 at 14:00 Glucose (Glutose) 15 gm Q15M PRN BUCCAL DECREASED GLUCOSE; Start 01/31/17 at 14: 00 Diltiazem HCl (Cardizem) 30 mg Q6 GTB Last administered on 01/31/17t 18:02; Admin Dose 30 MG; Start 01/31/17 at 18:00 SAMANTHA VÁZQUEZ Feb 01, 2017 07:51
--- NOTE | 2017-02-01 08:18 | PN ---
DATE: 02/01/2017 SUBJECTIVE: The patient had an EGD, colonoscopy performed yesterday with no signs of active bleedin g, hemorrhoids were noted. The patient overnight has had no further episodes of GI bleeding. The p atient remains critical, but stable, no other acute events noted. OBJECTIVE: VITAL SIGNS: Blood pressure 105/34, respirations 25, pulse 74, temperature 98.1. I'S AND O'S: The patient had 2.7 liters in with 400 mL out. HEENT: Head is normocephalic. NECK: Supple. HEART: Regular rate. LUNGS: Show diminished breath sounds at base. ABDOMEN: Soft, nontender to palpation. Positive PEG. EXTREMITIES: Negative for clubbing, cyanosis. Positive edema, +3. DERMATOLOGIC: No rashes. MUSCULOSKELETAL: Positive wound. NEUROLOGIC: Limited exam as the patient is obtunded. MEDICATIONS: The patient's medications have been reviewed. LABORATORY DATA: Shows white count 26.1, hemoglobin 7.6, hematocrit 23.1, platelet count 351. Sodi um 132, potassium 4.1, chloride 98, BUN 78, creatinine 3.02. Chest x-ray showed slightly improved l evelyn volumes. ASSESSMENT AND PLAN: This is an 81-year-old female who presents with: 1. Acute gastrointestinal bleed. Underlying etiology is possibly hemorrhoidal. The patient is sta tus post EGD, colonoscopy which showed no evidence of active bleeding, but positive hemorrhoids, pos itive esophagitis. At this point, will continue to monitor H and H levels. Will transfuse if hemog lobin level should fall less than 7 g/dL. Will check an iron panel, a ferritin level. Will conside r starting IV iron. Monitor closely. 2. Nonoliguric acute kidney injury on top of chronic kidney disease with previous baseline creatini ne around 1.3 mg/dL. Etiology of acute kidney injury is likely secondary to acute tubular necrosis due to sepsis, nephrotoxicity, hemodynamics. Patient's renal function appears to be stable in the l ast 24 hours. However, urinary output remains minimal. At this point, will recheck UA with microan alysis, check urine electrolytes, check a renal ultrasound. We will quantify the patient's proteinu ortiz. Will hold ANDREINA inhibitor. Will continue diuretic therapies as the patient is grossly volume ov erloaded. Will monitor closely. 3. Volume overload. The patient has diffuse anasarca. This may be secondary to sepsis, capillary leak, and/or third spacing due to severe malnutrition. Will continue to monitor I's and O's, will d iscontinue IV fluids, continue gentle diuretic therapy and monitor. 4. Hyponatremia, etiology secondary to acute kidney injury causing decreased free water urinary exc retion. Will continue to monitor sodium levels, limit free water flushes. 5. Ventilator dependent respiratory failure. Vent settings have been reviewed. ABG has been revie wed. Continue to monitor. Follow up with pulmonary. 6. Dysphagia status post percutaneous endoscopic gastrostomy. Continue tube feeding. 7. Sepsis secondary to Pseudomonas tracheobronchitis. Continue current antibiotic regimen. Follow up with infectious disease. The patient's cultures have been reviewed. We will continue to monito r. 8. History of Clostridium difficile. The patient is on empiric metronidazole. Continue. 9. History of lung cancer. Continue to monitor. 10. Acute on chronic encephalopathy. Etiology is toxic metabolic, no significant change. Continue to monitor. 11. Acute congestive heart failure exacerbation. Possibly diastolic. As stated above, we will con tinue diuretic therapy, monitor renal function closely. 12. Anemia, likely secondary to recent gastrointestinal bleed. Continue to monitor hemoglobin and hematocrit levels. Will transfuse PRBCs as needed. Continue PPI. 13. History of hypertension. The patient's blood pressure currently controlled. Continue current blood pressure regimen. Please note I spent over 40 minutes of critical care time with this patient. Dictated By: SHANTEL FAJARDO/HAFSA Conf#: [id number] DID#: [id number]
--- NOTE | 2017-02-01 09:00 | RADRPT ---
PROCEDURE: Retroperitoneal US. CLINICAL INDICATION: Renal insufficiency TECHNIQUE: Multiple sonographic images of the kidneys and retroperitoneum were obtained. The imag es were reviewed on a PACS workstation. COMPARISON: 01/26/2017, 01/29/17 FINDINGS: The kidneys are normal in size, contour, and cortical echogenicity. There is mild thinning of the cortex bilaterally. There is a 2.6 cm simple cyst in the left kidney. The right kidney measures 10.2 cm. The left kidney measures 10.7 cm. No kidney stones are visualized. There is no evidence for hydronephrosis. The urinary bladder is decompressed by a Pina and not seen. RPTAT: AA IMPRESSION: Mild thinning of the cortex bilaterally. No evidence of hydronephrosis. Simple cyst in the left kidney. .Jacek Leon MD, MD Date Time Electronically viewed and signed by .Jacek Leon MD, MD on 02/01/2017 09:00 .S/
[2017-02-01] MEDS: MEROPENEM 500 MG/100 ML (PMX) 100 ML IVPB SCH ×2 (09:51→20:54)
[2017-02-01] MEDS: NYSTATIN 30 GM POWDER BTL TOP SCH ×2 (09:51→20:55)
[2017-02-01] MEDS: LINEZOLID 600 MG/D5W (PMX) 300 ML IVPB SCH ×2 (09:51→20:54)
[2017-02-01] MEDS: NYSTATIN 15 GM CR TOP SCH ×2 (09:51→20:55)
[2017-02-01] MEDS: NA BICARBONATE 650 MG TAB PO SCH ×3 (09:52→21:58)
[2017-02-01] MEDS: ZINC SULFATE 220 MG CAP GTB SCH (09:52)
[2017-02-01] MEDS: LACTOBACILLUS CHEW TAB GTB SCH ×3 (09:52→20:54)
[2017-02-01] MEDS: FOLIC ACID 1 MG TAB GTB SCH (09:52)
[2017-02-01] MEDS: ASCORBIC ACID 500 MG TAB GTB SCH (09:52)
[2017-02-01] MEDS: OLANZAPINE (ODT) 5 MG TAB SL SCH ×2 (09:53→20:54)
[2017-02-01 10:06] LABS: BASOPHIL # 0.3 10^3/ul (0.0-0.1); LYMPHOCYTES # 0.5 10^3/ul (0.8-2.9); MONOCYTE # 0.8 10^3/ul (0.3-0.9); MYELOCYTES # 0.5; NEUTROPHIL # 18.8 10^3/ul (1.6-7.5)
[2017-02-01 10:07] LABS: HYPOCHROMASIA 1+; POLYCHROMASIA 1+
[2017-02-01 10:15] LABS: AADO2 Arterial 104.9 mmHg (7.0-24.0); Allen Test ACCEPTAB; Arterial Base Excess -4.9 mmol/L (-3.0-3); Arterial COHb 0.3 % (0.0-3.0); Arterial Fraction of Oxyhgb 97.4 % (93.0-99.0); Arterial HCO3 21.5 mmol/L (22.0-26.0); Arterial MetHb 0.5 % (0.0-1.5); Arterial Total Hemglobin 9.4 g/dl (12.0-18.0)
--- NOTE | 2017-02-01 10:25 | CONS ---
Date/Time of Note Date/Time of Note DATE: 02/01/17 TIME: 10:19 Assessment/Plan Assessment/Plan Chief Complaint/Hosp Course assessment/impression - sepsis - persistent leukocytosis. 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 s/p EGD and colo without clear e/ o source - h/o C diff colitis in 09/2016 per Pt's family members - diarrhea, C diff tests have been repeatedly negative at [facility]. Pt completed an empiric course of pGT and IV metronidazole, however - TEA - VDRF s/p tracheostomy - PEG tube dependence - h/o ileus - h/o lung CA recommendations - will order WBC tagged scan to locate a source of persistent leukocytosis - will repeat pancultures if temp>100.4F - continue empiric linezolid, meropenem and caspofungin. I recommend this regimen to cover not only pseudomonas in the airway, but also the intra- abdominal nasrin broadly including yeast, VRE management d/w Pt's [employer] and [facility] at [facility] the critical care time I took to care for this Pt today was from 0930 to 1000 Problems: Consultation Date/Type/Reason Admit Date/Time Jan 30, 2017 at 13:13 Initial Consult Date 01/30/17 Type of Consultation: ID Referring Provider: BECKY RUIZ MD 24 HR Interval Summary Subjective hx not possible: pt non-verbal, pt critical, pt critical status Exam/Review of Systems Vital Signs Vitals Vital Signs Date Time Temp Pulse Resp B/P Pulse Ox O2 Delivery O2 Flow Rate FiO2 02/01/17 09:03 96 35 100 35 02/01/17 06:00 105/34 Mechanical Ventilator 02/01/17 04:00 98.1 Intake and Output 01/31/17 01/31/17 02/01/17 15:00 23:00 07:00 Intake Total 1050 ml 1015 ml 585 ml Output Total 123 ml 150 ml 125 ml Balance 927 ml 865 ml 460 ml Exam Constitutional: frail, non-verbal, obese Psych: confusion Head: atraumatic, normocephalic Eyes: nl lids, nl sclera ENMT: nl external ears & nose, nl nasal mucosa & septum Neck: other (trach) Respiratory: crackles/rales Cardiovascular: nl pulses, regular rate and rhythm Gastrointestinal: distended, other (GT), soft Genitourinary - Female: other (FC) Musculoskeletal: No swelling Extremities: edema, pitting pedal edema, No tenderness Neurological: confused, lethargic Skin: ecchymosis Results Result Diagram: 02/01/17 0535 02/01/17 0535 Results 24 hrs Laboratory Tests Test 01/31/17 18:04 01/31/17 23:24 02/01/17 05:00 02/01/17 05:34 Bedside Glucose 123 152 135 Arterial Blood HCO3 18.4 L Arterial Blood Base Excess -6.3 L Arterial Blood Oxygen Saturation 98.1 [place]olome Test ACCEPTAB Arterial Blood Gas Puncture Site Right Radial Arterial Blood Carboxyhemoglobin 0 Arterial Blood Date Drawn 02/01/2017 4:27:18 AM Arterial Blood Methemoglobin 0.7 Arterial Blood pCO2 (Temp correct) 33.3 L Arterial Blood pH (Temp corrected) 7.361 Arterial Blood pO2 (Temp corrected) 126.5 H Blood Gas A-a O2 Differential 84.3 H Blood Gas Actual Respiration Rate 35 Blood Gas Inspiratory Pressure 41.0 Blood Gas Low PEEP Setting 5.0 Blood Gas Modality VENT - AC Blood Gas Notified Time 02/01/2017 4:49:09 AM Blood Gas Notified Whom RTR Blood Gas Respiration Rate 35.0 Blood Gas Specimen Source Blood arterial Blood Gas Temperature 37.0 Blood Gas Tidal Volume 450.0 FiO2 35.0 Oxyhemoglobin Percent 97.4 Total Hemoglobin 8.6 L Test 02/01/17 05:35 Anion Gap 20 H Band Neutrophils % 12.0 H Basophils # 0.3 H Basophils % 1.0 Blood Urea Nitrogen 78 H Calcium Level 8.2 L Carbon Dioxide Level 18 L Chloride Level 98 Creatinine 3.02 H Eosinophils # Eosinophils % Glucose Level 108 Hematocrit 23.1 L Hemoglobin 7.6 L Hypochromasia 1+ Lactic Acid Level 1.4 Lymphocytes # 0.5 L Lymphocytes % 2.0 L Macrocytosis 1+ Mean Corpuscular Hemoglobin 30.3 Mean Corpuscular Hemoglobin Concent 32.9 Mean Corpuscular Volume 92.0 Mean Platelet Volume 10.9 H Metamyelocytes # 2.1 Metamyelocytes % 8.0 H Monocytes # 0.8 Monocytes % 3.0 Myelocytes # 0.5 Myelocytes % 2.0 H Neutrophils # 18.8 H Neutrophils % 72.0 Nucleated Red Blood Cells # Nucleated Red Blood Cells % Platelet Count 351 Polychromasia 1+ Potassium Level 4.1 Red Blood Count 2.51 L Red Cell Distribution Width 20.4 H Sodium Level 132 L White Blood Count 26.1 H Medications Medications Current Medications Meropenem 100 ml @ 200 mls/hr Q12 IVPB Last administered on 02/01/17 09:51; Admin Dose 200 MLS/HR; Start 01/30/17 at 21:00 Caspofungin 50 mg/ Sodium Chloride 250 ml @ 250 mls/hr Q24H IVPB Last administered on 01/31/17 18:06; Admin Dose 250 MLS/HR; Start 01/31/17 at 18:00 Linezolid (Zyvox 600mg/D5W (Pmx)) 300 ml @ 300 mls/hr Q12 IVPB Last administered on 02/01/17 09:51; Admin Dose 300 MLS/HR; Start 01/30/17 at 21:00 Lansoprazole (Prevacid) 30 mg BID@06,18 GTB Last administered on 02/01/17 05:27 ; Admin Dose 30 MG; Start 01/31/17 at 18:00 Ascorbic Acid (Vitamin C) 500 mg DAILY GTB Last administered on 02/01/17 09:52 ; Admin Dose 500 MG; Start 02/01/17 at 09:00 Folic Acid (Folic Acid) 1 mg DAILY GTB Last administered on 02/01/17 09:52; Admin Dose 1 MG; Start 02/01/17 at 09:00 Hydralazine HCl (Apresoline) 10 mg Q6H PRN IV ELEVATED BLOOD PRESSURE; Start at 13:00 Acetaminophen/ Hydrocodone Bitart ([place] (5/325)) 1 tab Q6H PRN GTB PAIN LEVEL 1-5 Last administered on 01/31/17 13:42; Admin Dose 1 TAB; Start 01/31/17 at 13: 00 Acetaminophen/ Hydrocodone Bitart ([place] (5/325)) 2 tab Q6H PRN GTB PAIN LEVEL 6-10; Start 01/31/17 at 13:00 Insulin Aspart (Novolog Insulin Pen) NOVOLOG *MILD* ALGORITHM Q6 SC Last administered on 01/31/17 23:27; Admin Dose 1 UNIT; Start 01/31/17 at 18:00 Lactobacillus Acidoph/Bulgaricus (Floranex) 1 tab TID GTB Last administered on 02/01/17 09:52; Admin Dose 1 TAB; Start 01/31/17 at 13:00 Lisinopril (Zestril) 10 mg BID GTB ; Start 01/31/17 at 21:00; Status Future Hold Morphine Sulfate (morphine) 1 mg Q2H PRN IV PAIN LEVEL 1-5; Start 01/31/17 at 13 :00 Morphine Sulfate (morphine) 2 mg Q2H PRN IV SEVERE PAIN LEVEL 7-10; Start at 13:00 Nystatin (Nystatin Cr) 1 applic BID TOP Last administered on 02/01/17 09:51; Admin Dose 1 APPLIC; Start 01/31/17 at 21:00 Nystatin (Nystatin Powder) 1 applic BID TOP Last administered on 02/01/17 09:51 ; Admin Dose 1 APPLIC; Start 01/31/17 at 21:00 Olanzapine (Zyprexa Zydis) 2.5 mg BID SL Last administered on 02/01/17 09:53; Admin Dose 2.5 MG; Start 01/31/17 at 21:00 Ondansetron HCl (Zofran Inj) 4 mg Q6H PRN IV NAUSEA AND/OR VOMITING; Start 01/31 at 13:00 Quetiapine Fumarate (Seroquel) 25 mg Q6 PRN GTB PSYCHOSIS; Start 01/31/17 at 13: 00 Polyethylene Glycol (Miralax) 17 gm DAILY PRN GTB CONSTIPATION; Start 01/31/17 at 13:00 Zinc Sulfate (Zinc Sulfate) 220 mg DAILY GTB Last administered on 02/01/17 09: 52; Admin Dose 220 MG; Start 02/01/17 at 09:00 Miscellaneous Information 1 ea NOTE XX ; Start 01/31/17 at 14:00 Glucose (Glutose) 15 gm Q15M PRN PO DECREASED GLUCOSE; Start 01/31/17 at 14:00 Glucose (Glutose) 22.5 gm Q15M PRN PO DECREASED GLUCOSE; Start 01/31/17 at 14:00 Dextrose (D50w Syringe) 25 ml Q15M PRN IV DECREASED GLUCOSE; Start 01/31/17 at 14:00 Dextrose (D50w Syringe) 50 ml Q15M PRN IV DECREASED GLUCOSE; Start 01/31/17 at 14:00 Glucagon (Glucagen) 1 mg Q15M PRN IM DECREASED GLUCOSE; Start 01/31/17 at 14:00 Glucose (Glutose) 15 gm Q15M PRN BUCCAL DECREASED GLUCOSE; Start 01/31/17 at 14: 00 Diltiazem HCl (Cardizem) 30 mg Q6 GTB Last administered on 01/31/17 18:02; Admin Dose 30 MG; Start 01/31/17 at 18:00 Sodium Bicarbonate (Sodium Bicarbonate Tab) 650 mg Q8 PO Last administered on 09:52; Admin Dose 650 MG; Start 02/01/17 at 09:00 VERN WOODS M.D. Feb 01, 2017 10:25
--- NOTE | 2017-02-01 10:45 | CONS ---
Date/Time of Note Date/Time of Note DATE: 02/01/17 TIME: 10:43 Assessment/Plan Assessment/Plan Chief Complaint/Hosp Course Impression 1. symptomatic anemia secondary to recurrent GIB: occult blood positive as tested by my rectal exam on 01-30-17. EGD and colonoscopy did not show any active bleeding source except hemorrhoids. 2. sepsis with persistent leukocytosis. Screening CT of chest/abd/pel on 2016 did not demonstrate a clear infectious process other than pneumonia 3. persistent pseudomonas in the airway 4. h/o C diff colitis in 09/2016 per Pt's family members. Although patient hasdiarrhea, C diff tests have been repeatedly negative at [place] and [place]. 5. Respiratory failure s/p tracheostomy 6. Dysphagia s/p PEG tube with dependence Recommendations - consider surgical eval for hemorrhoids as it is the most likely cause if it is GI bleeding - consider Roofing Machine Operator eval to r/o Roofing Machine Operator causes of bleeding as 2 colonoscopies done at different facility by 2 different endoscopists did not reveal source of patient' s GI bleed. One will need to consider Roofing Machine Operator bleeding. - management of patient's sepsis per ID - continue all other supportive care Problems: Consultation Date/Type/Reason Admit Date/Time Jan 30, 2017 at 13:13 Type of Consultation: GI Referring Provider: BECKY RUIZ MD 24 HR Interval Summary Subjective hx not possible: pt non-verbal, pt critical Exam/Review of Systems Vital Signs Vitals Vital Signs Date Time Temp Pulse Resp B/P Pulse Ox O2 Delivery O2 Flow Rate FiO2 02/01/17 09:03 96 35 100 35 02/01/17 06:00 105/34 Mechanical Ventilator 02/01/17 04:00 98.1 Intake and Output 01/31/17 01/31/17 02/01/17 15:00 23:00 07:00 Intake Total 1050 ml 1015 ml 585 ml Output Total 123 ml 150 ml 125 ml Balance 927 ml 865 ml 460 ml Exam Constitutional: non-verbal Psych: confusion Head: atraumatic, normocephalic Eyes: EOMI, nl conjunctiva, nl lids, nl sclera ENMT: mucosa pink and moist, nl external ears & nose, nl lips & teeth, nl nasal mucosa & septum Neck: non-tender, supple Respiratory: clear to auscultation, normal air movement Cardiovascular: nl pulses, regular rate and rhythm Gastrointestinal: bowel sounds, non-tender, soft Results Result Diagram: 02/01/17 0535 02/01/17 0535 Results 24 hrs Laboratory Tests Test 01/31/17 18:04 01/31/17 23:24 02/01/17 05:00 02/01/17 05:34 Bedside Glucose 123 152 135 Arterial Blood HCO3 18.4 L Arterial Blood Base Excess -6.3 L Arterial Blood Oxygen Saturation 98.1 [place] Test ACCEPTAB Arterial Blood Gas Puncture Site Right Radial Arterial Blood Carboxyhemoglobin 0 Arterial Blood Date Drawn 02/01/2017 4:27:18 AM Arterial Blood Methemoglobin 0.7 Arterial Blood pCO2 (Temp correct) 33.3 L Arterial Blood pH (Temp corrected) 7.361 Arterial Blood pO2 (Temp corrected) 126.5 H Blood Gas A-a O2 Differential 84.3 H Blood Gas Actual Respiration Rate 35 Blood Gas Inspiratory Pressure 41.0 Blood Gas Low PEEP Setting 5.0 Blood Gas Modality VENT - AC Blood Gas Notified Time 02/01/2017 4:49:09 AM Blood Gas Notified Whom RTR Blood Gas Respiration Rate 35.0 Blood Gas Specimen Source Blood arterial Blood Gas Temperature 37.0 Blood Gas Tidal Volume 450.0 FiO2 35.0 Oxyhemoglobin Percent 97.4 Total Hemoglobin 8.6 L Test 02/01/17 05:35 Anion Gap 20 H Band Neutrophils % 12.0 H Basophils # 0.3 H Basophils % 1.0 Blood Urea Nitrogen 78 H Calcium Level 8.2 L Carbon Dioxide Level 18 L Chloride Level 98 Creatinine 3.02 H Eosinophils # Eosinophils % Glucose Level 108 Hematocrit 23.1 L Hemoglobin 7.6 L Hypochromasia 1+ Lactic Acid Level 1.4 Lymphocytes # 0.5 L Lymphocytes % 2.0 L Macrocytosis 1+ Mean Corpuscular Hemoglobin 30.3 Mean Corpuscular Hemoglobin Concent 32.9 Mean Corpuscular Volume 92.0 Mean Platelet Volume 10.9 H Metamyelocytes # 2.1 Metamyelocytes % 8.0 H Monocytes # 0.8 Monocytes % 3.0 Myelocytes # 0.5 Myelocytes % 2.0 H Neutrophils # 18.8 H Neutrophils % 72.0 Nucleated Red Blood Cells # Nucleated Red Blood Cells % Platelet Count 351 Polychromasia 1+ Potassium Level 4.1 Red Blood Count 2.51 L Red Cell Distribution Width 20.4 H Sodium Level 132 L White Blood Count 26.1 H Medications Medications Current Medications Meropenem 100 ml @ 200 mls/hr Q12 IVPB Last administered on 02/01/17 09:51; Admin Dose 200 MLS/HR; Start 01/30/17 at 21:00 Caspofungin 50 mg/ Sodium Chloride 250 ml @ 250 mls/hr Q24H IVPB Last administered on 01/31/17 18:06; Admin Dose 250 MLS/HR; Start 01/31/17 at 18:00 Linezolid (Zyvox 600mg/D5W (Pmx)) 300 ml @ 300 mls/hr Q12 IVPB Last administered on 02/01/17 09:51; Admin Dose 300 MLS/HR; Start 01/30/17 at 21:00 Lansoprazole (Prevacid) 30 mg BID@06,18 GTB Last administered on 02/01/17 05:27 ; Admin Dose 30 MG; Start 01/31/17 at 18:00 Ascorbic Acid (Vitamin C) 500 mg DAILY GTB Last administered on 02/01/17 09:52 ; Admin Dose 500 MG; Start 02/01/17 at 09:00 Folic Acid (Folic Acid) 1 mg DAILY GTB Last administered on 02/01/17 09:52; Admin Dose 1 MG; Start 02/01/17 at 09:00 Hydralazine HCl (Apresoline) 10 mg Q6H PRN IV ELEVATED BLOOD PRESSURE; Start at 13:00 Acetaminophen/ Hydrocodone Bitart ([place] (5/325)) 1 tab Q6H PRN GTB PAIN LEVEL 1-5 Last administered on 01/31/17 13:42; Admin Dose 1 TAB; Start 01/31/17 at 13: 00 Acetaminophen/ Hydrocodone Bitart ([place] (5/325)) 2 tab Q6H PRN GTB PAIN LEVEL 6-10; Start 01/31/17 at 13:00 Insulin Aspart (Novolog Insulin Pen) NOVOLOG *MILD* ALGORITHM Q6 SC Last administered on 01/31/17 23:27; Admin Dose 1 UNIT; Start 01/31/17 at 18:00 Lactobacillus Acidoph/Bulgaricus (Floranex) 1 tab TID GTB Last administered on 02/01/17 09:52; Admin Dose 1 TAB; Start 01/31/17 at 13:00 Lisinopril (Zestril) 10 mg BID GTB ; Start 01/31/17 at 21:00; Status Future Hold Morphine Sulfate (morphine) 1 mg Q2H PRN IV PAIN LEVEL 1-5; Start 01/31/17 at 13 :00 Morphine Sulfate (morphine) 2 mg Q2H PRN IV SEVERE PAIN LEVEL 7-10; Start at 13:00 Nystatin (Nystatin Cr) 1 applic BID TOP Last administered on 02/01/17 09:51; Admin Dose 1 APPLIC; Start 01/31/17 at 21:00 Nystatin (Nystatin Powder) 1 applic BID TOP Last administered on 02/01/17 09:51 ; Admin Dose 1 APPLIC; Start 01/31/17 at 21:00 Olanzapine (Zyprexa Zydis) 2.5 mg BID SL Last administered on 02/01/17 09:53; Admin Dose 2.5 MG; Start 01/31/17 at 21:00 Ondansetron HCl (Zofran Inj) 4 mg Q6H PRN IV NAUSEA AND/OR VOMITING; Start 01/31 at 13:00 Quetiapine Fumarate (Seroquel) 25 mg Q6 PRN GTB PSYCHOSIS; Start 01/31/17 at 13: 00 Polyethylene Glycol (Miralax) 17 gm DAILY PRN GTB CONSTIPATION; Start 01/31/17 at 13:00 Zinc Sulfate (Zinc Sulfate) 220 mg DAILY GTB Last administered on 02/01/17 09: 52; Admin Dose 220 MG; Start 02/01/17 at 09:00 Miscellaneous Information 1 ea NOTE XX ; Start 01/31/17 at 14:00 Glucose (Glutose) 15 gm Q15M PRN PO DECREASED GLUCOSE; Start 01/31/17 at 14:00 Glucose (Glutose) 22.5 gm Q15M PRN PO DECREASED GLUCOSE; Start 01/31/17 at 14:00 Dextrose (D50w Syringe) 25 ml Q15M PRN IV DECREASED GLUCOSE; Start 01/31/17 at 14:00 Dextrose (D50w Syringe) 50 ml Q15M PRN IV DECREASED GLUCOSE; Start 01/31/17 at 14:00 Glucagon (Glucagen) 1 mg Q15M PRN IM DECREASED GLUCOSE; Start 01/31/17 at 14:00 Glucose (Glutose) 15 gm Q15M PRN BUCCAL DECREASED GLUCOSE; Start 01/31/17 at 14: 00 Diltiazem HCl (Cardizem) 30 mg Q6 GTB Last administered on 01/31/17 18:02; Admin Dose 30 MG; Start 01/31/17 at 18:00 Sodium Bicarbonate (Sodium Bicarbonate Tab) 650 mg Q8 PO Last administered on 09:52; Admin Dose 650 MG; Start 02/01/17 at 09:00 EDMUNDO HO MD Feb 01, 2017 10:45
[2017-02-01 15:23] LABS: HEMATOCRIT 22.9 % (37.0-47.0); HEMOGLOBIN 7.7 g/dl (12.0-16.0)
--- NOTE | 2017-02-01 16:44 | CONS ---
DATE OF ADMISSION: 01/30/2017 DATE OF CONSULTATION: 02/01/2017 TYPE OF CONSULTATION: Cardiology. REFERRING PHYSICIAN: Dr. Hawkins REASON FOR CONSULTATION: Atrial fibrillation. CHIEF COMPLAINT: 1. Rectal bleed. 2. Respiratory failure. HISTORY OF PRESENT ILLNESS: Thank you for this referral. History obtained from the patient's old c eaton, review of the staff and discussed with the staff and physicians. Also, partially from the pat ie, however she is not able to provide much of a history to me. This is unfortunate 81-year-old f emale with multiple complicated medical history who was transferred from [facility] for a GI bleed. The patient has had a workup, he had a hemorrhoid as well. The patient denies any chest pain or pressure to me. He has been in atrial fibrillation and flutter. Heart rate has remained stable, though. She is not anticoagulated due to above and anemia. PAST MEDICAL HISTORY: History of lung cancer, colitis, renal failure, respiratory failure, status p ost tracheostomy, history of atrial fibrillation and flutter, history of anemia. SOCIAL HISTORY: History of status post tracheostomy, PEG placement and cholecystectomy. SOCIAL HISTORY: The patient is an ex-smoker. FAMILY HISTORY: No reported coronary artery disease. MEDICATIONS: Per medical reconciliation, personally reviewed. REVIEW OF SYSTEMS: Otherwise negative except for above-mentioned, patient has chronic vent since th e past month and is on the trach now. PHYSICAL EXAMINATION: VITAL SIGNS: Temperature 98.1, heart rate of 76, blood pressure 100/46, respiratory rate of 35. HEENT: Normocephalic, atraumatic, obese female. Pupils equal and round. NECK: Tracheostomy on the vent. CARDIOVASCULAR: Irregularly irregular. Systolic murmur. PULMONARY: With no wheezes anteriorly, mild rhonchi. GASTROINTESTINAL: Soft, obese, nontender. EXTREMITIES: Diffuse upper and lower extremity edema. NEUROLOGIC: Awake, responds appropriately. PSYCHIATRIC: Appears to be calm and pleasant. LABORATORY: WBC of 26.1, hemoglobin 7.6, platelets of 351. Sodium 132, potassium 4.1, BUN of 78, c reatinine 3.02, glucose of 108. ABG shows pH of 7.36, pO2 of 126. Chest x-ray shows slightly improved lung volumes. Old chart were reviewed and the patient's most re cent echocardiogram done on January 22 which was personally reviewed, showed ejection fraction of 6 5 to 70%. PA pressure was elevated at 46 mmHg. ASSESSMENT AND PLAN: 1. Hypoxemic respiratory failure. 2. Atrial fibrillation and flutter, heart rate has remained stable. 3. Gastrointestinal bleed consistent what appeared to be hemorrhoids ____ . 4. History of lung carcinoma. 5. Acute renal failure on chronic kidney disease. 6. Status post difficile colitis. 7. Dysphagia, status post PEG placement. 8. History of hypertension, currently stable. RECOMMENDATIONS: 1. Severe anemia. 2. Anasarca, fluid overload. RECOMMENDATIONS: Diuresis as per renal. We will continue with respiratory care. ICU care. We vickie l continue transfusion p.r.n. Dictated By: JOSE ROBERTO SALDIVAR/HAFSA Conf#: [id number] DID#: [id number]
[2017-02-01 17:51] LABS: ADD UMIC YES; URINE BILIRUBIN (Dip) NEGATIVE (NEGATIVE); URINE BLOOD (Dip) NEGATIVE (NEGATIVE); URINE COLOR LT. YELLOW (YELLOW); URINE GLUCOSE (Dip) NEGATIVE (NEGATIVE); URINE KETONES (Dip) NEGATIVE (NEGATIVE); URINE LEUKOCYTE ESTERASE (Dip) 1+ (NEGATIVE); URINE NITRITE (Dip) NEGATIVE (NEGATIVE); URINE TOTAL PROTEIN (Dip) TRACE (NEGATIVE); URINE UROBILINOGEN (Dip) 0.2 E.U./dL (0.1-1.0)
[2017-02-01] MEDS: FUROSEMIDE 40 MG INJ IV SCH (18:00)
[2017-02-01] MEDS: CASPOFUNGIN 50 MG in SOD CHLORIDE 0.9% 250 ML IVPB SCH (18:01)
[2017-02-01 18:16] LABS: BACTERIA,URINE MODERATE; SQUAMOUS EPITHELIAL CELL,UR MODERATE; TRANSITIONAL EPI CELLS,URINE MODERATE
--- NOTE | 2017-02-01 21:15 | CONS ---
Date/Time of Note Date/Time of Note DATE: 02/01/17 TIME: 21:14 Assessment/Plan Assessment/Plan Chief Complaint/Hosp Course Impression 1. symptomatic anemia secondary to recurrent GIB: occult blood positive as tested by my rectal exam on 01-30-17. EGD and colonoscopy did not show any active bleeding source except hemorrhoids. 2. sepsis with persistent leukocytosis. Screening CT of chest/abd/pel on 2016 did not demonstrate a clear infectious process other than pneumonia 3. persistent pseudomonas in the airway 4. h/o C diff colitis in 09/2016 per Pt's family members. Although patient hasdiarrhea, C diff tests have been repeatedly negative at [place] and [place]. 5. Respiratory failure s/p tracheostomy 6. Dysphagia s/p PEG tube with dependence Recommendations - consider surgical eval for hemorrhoids as it is the most likely cause if it is GI bleeding - consider Hospice Team Lead eval to r/o Hospice Team Lead causes of bleeding as 2 colonoscopies done at different facility by 2 different endoscopists did not reveal source of patient' s GI bleed. One will need to consider Hospice Team Lead bleeding. - management of patient's sepsis per ID - continue all other supportive care Problems: Consultation Date/Type/Reason Admit Date/Time Jan 30, 2017 at 13:13 Type of Consultation: GI Referring Provider: BECKY RUIZ MD 24 HR Interval Summary Free Text/Dictation no melena, brbpr Exam/Review of Systems Vital Signs Vitals Vital Signs Date Time Temp Pulse Resp B/P Pulse Ox O2 Delivery O2 Flow Rate FiO2 02/01/17 20:00 35 02/01/17 20:00 97.9 68 18 126/49 100 Mechanical Ventilator Intake and Output 01/31/17 01/31/17 02/01/17 14:59 22:59 06:59 Intake Total 1050 ml 760 ml 940 ml Output Total 123 ml 130 ml 145 ml Balance 927 ml 630 ml 795 ml Exam Psych: confusion Head: atraumatic, normocephalic Eyes: EOMI, nl conjunctiva, nl lids ENMT: nl external ears & nose, nl lips & teeth, nl nasal mucosa & septum Neck: non-tender, supple Respiratory: clear to auscultation, normal air movement Cardiovascular: nl pulses, regular rate and rhythm Gastrointestinal: bowel sounds, non-tender, soft Results Result Diagram: 02/01/17 1450 02/01/17 0535 Results 24 hrs Laboratory Tests Test 01/31/17 23:24 02/01/17 05:00 02/01/17 05:34 02/01/17 05:35 Bedside Glucose 152 135 Arterial Blood HCO3 18.4 L Arterial Blood Base Excess -6.3 L Arterial Blood Oxygen Saturation 98.1 [place] Test ACCEPTAB Arterial Blood Gas Puncture Site Right Radial Arterial Blood Carboxyhemoglobin 0 Arterial Blood Date Drawn 02/01/2017 4:27:18 AM Arterial Blood Methemoglobin 0.7 Arterial Blood pCO2 (Temp correct) 33.3 L Arterial Blood pH (Temp corrected) 7.361 Arterial Blood pO2 (Temp corrected) 126.5 H Blood Gas A-a O2 Differential 84.3 H Blood Gas Actual Respiration Rate 35 Blood Gas Inspiratory Pressure 41.0 Blood Gas Low PEEP Setting 5.0 Blood Gas Modality VENT - AC Blood Gas Notified Time 02/01/2017 4:49:09 AM Blood Gas Notified Whom RTR Blood Gas Respiration Rate 35.0 Blood Gas Specimen Source Blood arterial Blood Gas Temperature 37.0 Blood Gas Tidal Volume 450.0 FiO2 35.0 Oxyhemoglobin Percent 97.4 Total Hemoglobin 8.6 L Anion Gap 20 H Band Neutrophils % 12.0 H Basophils # 0.3 H Basophils % 1.0 Blood Urea Nitrogen 78 H Calcium Level 8.2 L Carbon Dioxide Level 18 L Chloride Level 98 Creatinine 3.02 H Eosinophils # Eosinophils % Glucose Level 108 Hematocrit 23.1 L Hemoglobin 7.6 L Hypochromasia 1+ Lactic Acid Level 1.4 Lymphocytes # 0.5 L Lymphocytes % 2.0 L Macrocytosis 1+ Mean Corpuscular Hemoglobin 30.3 Mean Corpuscular Hemoglobin Concent 32.9 Mean Corpuscular Volume 92.0 Mean Platelet Volume 10.9 H Metamyelocytes # 2.1 Metamyelocytes % 8.0 H Monocytes # 0.8 Monocytes % 3.0 Myelocytes # 0.5 Myelocytes % 2.0 H Neutrophils # 18.8 H Neutrophils % 72.0 Nucleated Red Blood Cells # Nucleated Red Blood Cells % Platelet Count 351 Polychromasia 1+ Potassium Level 4.1 Red Blood Count 2.51 L Red Cell Distribution Width 20.4 H Sodium Level 132 L White Blood Count 26.1 H Test 02/01/17 12:36 02/01/17 14:50 02/01/17 16:00 02/01/17 17:43 Bedside Glucose 107 128 Hematocrit 22.9 L Hemoglobin 7.7 L Urine Bacteria MODERATE Urine Bilirubin NEGATIVE Urine Clarity CLOUDY Urine Color LT. YELLOW Urine Glucose NEGATIVE Urine Hemoglobin NEGATIVE Urine Ketones NEGATIVE Urine Leukocyte Esterase 1+ H Urine Microscopic RBC 2-5 Urine Microscopic WBC 5-10 Urine Nitrite NEGATIVE Urine Random Creatinine 46.04 Urine Random Sodium 35 Urine Specific [place] 1.015 Urine Squamous Epithelial Cells MODERATE Urine Total Protein 36.0 H Urine Transitional Epithelial Cells MODERATE Urine Urobilinogen 0.2 E.U./dL Urine Yeast MODERATE Urine pH 5.0 Medications Medications Current Medications Meropenem 100 ml @ 200 mls/hr Q12 IVPB Last administered on 02/01/17 20:54; Admin Dose 200 MLS/HR; Start 01/30/17 at 21:00 Caspofungin 50 mg/ Sodium Chloride 250 ml @ 250 mls/hr Q24H IVPB Last administered on 02/01/17 18:01; Admin Dose 250 MLS/HR; Start 01/31/17 at 18:00 Linezolid (Zyvox 600mg/D5W (Pmx)) 300 ml @ 300 mls/hr Q12 IVPB Last administered on 02/01/17 20:54; Admin Dose 300 MLS/HR; Start 01/30/17 at 21:00 Lansoprazole (Prevacid) 30 mg BID@06,18 GTB Last administered on 02/01/17 18:00 ; Admin Dose 30 MG; Start 01/31/17 at 18:00 Ascorbic Acid (Vitamin C) 500 mg DAILY GTB Last administered on 02/01/17 09:52 ; Admin Dose 500 MG; Start 02/01/17 at 09:00 Folic Acid (Folic Acid) 1 mg DAILY GTB Last administered on 02/01/17 09:52; Admin Dose 1 MG; Start 02/01/17 at 09:00 Hydralazine HCl (Apresoline) 10 mg Q6H PRN IV ELEVATED BLOOD PRESSURE; Start at 13:00 Acetaminophen/ Hydrocodone Bitart ([place] (5/325)) 1 tab Q6H PRN GTB PAIN LEVEL 1-5 Last administered on 01/31/17 13:42; Admin Dose 1 TAB; Start 01/31/17 at 13: 00 Acetaminophen/ Hydrocodone Bitart ([place] (5/325)) 2 tab Q6H PRN GTB PAIN LEVEL 6-10; Start 01/31/17 at 13:00 Insulin Aspart (Novolog Insulin Pen) NOVOLOG *MILD* ALGORITHM Q6 SC Last administered on 01/31/17 23:27; Admin Dose 1 UNIT; Start 01/31/17 at 18:00 Lactobacillus Acidoph/Bulgaricus (Floranex) 1 tab TID GTB Last administered on 02/01/17 20:54; Admin Dose 1 TAB; Start 01/31/17 at 13:00 Lisinopril (Zestril) 10 mg BID GTB ; Start 01/31/17 at 21:00; Status Future Hold Morphine Sulfate (morphine) 1 mg Q2H PRN IV PAIN LEVEL 1-5; Start 01/31/17 at 13 :00 Morphine Sulfate (morphine) 2 mg Q2H PRN IV SEVERE PAIN LEVEL 7-10; Start at 13:00 Nystatin (Nystatin Cr) 1 applic BID TOP Last administered on 02/01/17 20:55; Admin Dose 1 APPLIC; Start 01/31/17 at 21:00 Nystatin (Nystatin Powder) 1 applic BID TOP Last administered on 02/01/17 20:55 ; Admin Dose 1 APPLIC; Start 01/31/17 at 21:00 Olanzapine (Zyprexa Zydis) 2.5 mg BID SL Last administered on 02/01/17 20:54; Admin Dose 2.5 MG; Start 01/31/17 at 21:00 Ondansetron HCl (Zofran Inj) 4 mg Q6H PRN IV NAUSEA AND/OR VOMITING; Start 01/31 at 13:00 Quetiapine Fumarate (Seroquel) 25 mg Q6 PRN GTB PSYCHOSIS; Start 01/31/17 at 13: 00 Polyethylene Glycol (Miralax) 17 gm DAILY PRN GTB CONSTIPATION; Start 01/31/17 at 13:00 Zinc Sulfate (Zinc Sulfate) 220 mg DAILY GTB Last administered on 02/01/17 09: 52; Admin Dose 220 MG; Start 02/01/17 at 09:00 Miscellaneous Information 1 ea NOTE XX ; Start 01/31/17 at 14:00 Glucose (Glutose) 15 gm Q15M PRN PO DECREASED GLUCOSE; Start 01/31/17 at 14:00 Glucose (Glutose) 22.5 gm Q15M PRN PO DECREASED GLUCOSE; Start 01/31/17 at 14:00 Dextrose (D50w Syringe) 25 ml Q15M PRN IV DECREASED GLUCOSE; Start 01/31/17 at 14:00 Dextrose (D50w Syringe) 50 ml Q15M PRN IV DECREASED GLUCOSE; Start 01/31/17 at 14:00 Glucagon (Glucagen) 1 mg Q15M PRN IM DECREASED GLUCOSE; Start 01/31/17 at 14:00 Glucose (Glutose) 15 gm Q15M PRN BUCCAL DECREASED GLUCOSE; Start 01/31/17 at 14: 00 Diltiazem HCl (Cardizem) 30 mg Q6 GTB Last administered on 02/01/17 18:00; Admin Dose 30 MG; Start 01/31/17 at 18:00 Sodium Bicarbonate (Sodium Bicarbonate Tab) 650 mg Q8 PO Last administered on 16:30; Admin Dose 650 MG; Start 02/01/17 at 09:00 EDMUNDO HO MD Feb 01, 2017 21:14
[2017-02-02] VITALS (35 sets, daily range): BP systolic 94–142; BP diastolic 35–75; PULSE 70–94; RESP 15–36
[2017-02-02] MEDS: INSULIN ASPART [NOVOLOG] 3 ML PEN SC SCH ×4 (00:32→18:00)
[2017-02-02] MEDS: DILTIAZEM 30 MG TAB GTB SCH ×5 (01:13→23:58)
[2017-02-02 04:53] LABS: ADD SCAN DIFF NO
[2017-02-02] MEDS: LANSOPRAZOLE 30 MG CAP GTB SCH ×2 (05:03→18:43)
[2017-02-02] MEDS: FUROSEMIDE 40 MG INJ IV SCH ×2 (05:03→18:42)
[2017-02-02] MEDS: NA BICARBONATE 650 MG TAB PO SCH ×3 (05:03→20:36)
[2017-02-02] MEDS: SPIRONOLACTONE 25 MG TAB NGT SCH ×2 (05:03→18:45)
[2017-02-02 05:06] LABS: ABNORMAL IP MESSAGE 1; BASOPHIL # 0.1 10^3/ul (0.0-0.1); BASOPHILS % 0.3 % (0.0-2.0); EOSINOPHILS % 0.1 % (0.0-7.0); HEMATOCRIT 23.1 % (37.0-47.0); HEMOGLOBIN 7.5 g/dl (12.0-16.0); LYMPHOCYTES # 1.6 10^3/ul (0.8-2.9); LYMPHOCYTES % 6.2 % (15.0-51.0); MEAN CORPUSCULAR HEMOGLOBIN 29.5 pg (29.0-33.0); MEAN CORPUSCULAR HGB CONC 32.5 g/dl (32.0-37.0); MEAN CORPUSCULAR VOLUME 90.9 fl (82.0-101.0); MEAN PLATELET VOLUME 10.4 fl (7.4-10.4); MONOCYTE # 1.2 10^3/ul (0.3-0.9); MONOCYTES % 4.8 % (0.0-11.0); NEUTROPHIL # 18.3 10^3/ul (1.6-7.5); NEUTROPHILS % 71.2 % (39.0-77.0); PLATELET COUNT 385 10^3/UL (140-415); RED BLOOD COUNT 2.54 10^6/ul (4.20-5.40); RED CELL DISTRIBUTION WIDTH 20.2 % (11.5-14.5); WHITE BLOOD COUNT 25.7 10^3/ul (4.8-10.8)
[2017-02-02 05:48] LABS: CREATININE 3.08 mg/dl (0.44-1.00)
[2017-02-02 05:49] LABS: CALCIUM 8.5 mg/dl (8.4-10.2); MAGNESIUM 1.9 mg/dl (1.7-2.5); PHOSPHORUS 4.6 mg/dl (2.5-4.9)
--- NOTE | 2017-02-02 07:34 | CONS ---
Date/Time of Note Date/Time of Note DATE: 02/02/17 TIME: 07:31 Assessment/Plan Assessment/Plan Additional Assessment/Plan Ventilator settings; AC of 35, tidal volume 450, PEEP of 5, 30% FiO2. Chest x-ray was reviewed from today which is showing essentially clear lung mckee with slight interstitial prominence. Next Assessment recommendations; next 1. Patient admitted with anemia with rectal bleeding which has been attributed to hemorrhoids. With a further drop in hematocrit today. 2. 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 3. Chronic renal insufficiency. 4. Mild metabolic acidosis with interval improvement after started on replacement sodium bicarb. 5. Hypertension. 6. Compensated CHF. 7. Prior history of lobectomy due to lung malignancy involving the left lower lobe. Continue current supportive care. Transfuse 1 unit of packed RBC. She can be transferred back to [facility]. Overall prognosis remains poor. Consultation Date/Type/Reason Admit Date/Time Jan 30, 2017 at 13:13 Initial Consult Date 01/30/17 Type of Consultation: Pulmonary/critical care Referring Provider: BECKY RIUZ MD 24 HR Interval Summary Free Text/Dictation Patient condition is stable. She is much more awake today. Follow simple commands and moves all 4 extremities. Has remained hemodynamically stable. General examination; elderly lady, on ventilator via tracheostomy awake and alert. Exam/Review of Systems Vital Signs Vitals Vital Signs Date Time Temp Pulse Resp B/P Pulse Ox O2 Delivery O2 Flow Rate FiO2 02/02/17 06:00 71 35 115/53 100 Mechanical Ventilator 02/02/17 05:51 30 02/02/17 04:00 98.0 Intake and Output 02/01/17 02/01/17 02/02/17 15:00 23:00 07:00 Intake Total 940 ml 1190 ml 585 ml Output Total 355 ml 155 ml Balance 940 ml 835 ml 430 ml Exam HEENT examination; supple neck, JVD difficult to see because of short neck. Tracheostomy in place with clean insertion site. Pupils are midsize and reactive to light bilaterally. Fair dentition. No neck masses, no thyromegaly. Chest examination; diminished but clear breath sounds bilaterally. S1-S2 audible, no murmurs. Regular rhythm. Abdomen examination; protuberant, nontender. G-tube in place. Bowel sounds audible. Extremity exam; trace generalized edema. Pulses 1+ bilaterally. MEDICAL LABORATORY MANAGER examination; patient follows commands moves all 4 extremities but has severe generalized weakness. Results Result Diagram: 02/02/17 0420 02/02/17 0430 Results 24 hrs Laboratory Tests Test 02/01/17 12:36 02/01/17 14:50 02/01/17 16:00 02/01/17 17:43 Bedside Glucose 107 128 Hematocrit 22.9 L Hemoglobin 7.7 L Urine Bacteria MODERATE Urine Bilirubin NEGATIVE Urine Clarity CLOUDY Urine Color LT. YELLOW Urine Glucose NEGATIVE Urine Hemoglobin NEGATIVE Urine Ketones NEGATIVE Urine Leukocyte Esterase 1+ H Urine Microscopic RBC 2-5 Urine Microscopic WBC 5-10 Urine Nitrite NEGATIVE Urine Random Creatinine 46.04 Urine Random Sodium 35 Urine Specific [place] 1.015 Urine Squamous Epithelial Cells MODERATE Urine Total Protein 36.0 H Urine Transitional Epithelial Cells MODERATE Urine Urobilinogen 0.2 E.U./dL Urine Yeast MODERATE Urine pH 5.0 Test 02/02/17 00:28 02/02/17 04:20 02/02/17 04:30 02/02/17 05:13 Bedside Glucose 143 121 Basophils # 0.1 Basophils % 0.3 Eosinophils # 0.0 Eosinophils % 0.1 Hematocrit 23.1 L Hemoglobin 7.5 L Lymphocytes # 1.6 Lymphocytes % 6.2 L Mean Corpuscular Hemoglobin 29.5 Mean Corpuscular Hemoglobin Concent 32.5 Mean Corpuscular Volume 90.9 Mean Platelet Volume 10.4 Monocytes # 1.2 H Monocytes % 4.8 Neutrophils # 18.3 H Neutrophils % 71.2 Nucleated Red Blood Cells # 0.0 Nucleated Red Blood Cells % 0.0 Platelet Count 385 Red Blood Count 2.54 L Red Cell Distribution Width 20.2 H White Blood Count 25.7 H Anion Gap 19 H Blood Urea Nitrogen 85 H Calcium Level 8.5 Carbon Dioxide Level 21 Chloride Level 97 Creatinine 3.08 H Glucose Level 107 Magnesium Level 1.9 Phosphorus Level 4.6 Potassium Level 4.0 Sodium Level 133 L Medications Medications Current Medications Meropenem 100 ml @ 200 mls/hr Q12 IVPB Last administered on 02/01/17t 20:54; Admin Dose 200 MLS/HR; Start 01/30/17 at 21:00 Caspofungin 50 mg/ Sodium Chloride 250 ml @ 250 mls/hr Q24H IVPB Last administered on 02/01/17 18:01; Admin Dose 250 MLS/HR; Start 01/31/17 at 18:00 Linezolid (Zyvox 600mg/D5W (Pmx)) 300 ml @ 300 mls/hr Q12 IVPB Last administered on 02/01/17 20:54; Admin Dose 300 MLS/HR; Start 01/30/17 at 21:00 Lansoprazole (Prevacid) 30 mg BID@06,18 GTB Last administered on 02/02/17 05:03 ; Admin Dose 30 MG; Start 01/31/17 at 18:00 Ascorbic Acid (Vitamin C) 500 mg DAILY GTB Last administered on 02/01/17 09:52 ; Admin Dose 500 MG; Start 02/01/17 at 09:00 Folic Acid (Folic Acid) 1 mg DAILY GTB Last administered on 02/01/17 09:52; Admin Dose 1 MG; Start 02/01/17 at 09:00 Hydralazine HCl (Apresoline) 10 mg Q6H PRN IV ELEVATED BLOOD PRESSURE; Start at 13:00 Acetaminophen/ Hydrocodone Bitart ([place] (5/325)) 1 tab Q6H PRN GTB PAIN LEVEL 1-5 Last administered on 01/31/17 13:42; Admin Dose 1 TAB; Start 01/31/17 at 13: 00 Acetaminophen/ Hydrocodone Bitart ([place] (5/325)) 2 tab Q6H PRN GTB PAIN LEVEL 6-10; Start 01/31/17 at 13:00 Insulin Aspart (Novolog Insulin Pen) NOVOLOG *MILD* ALGORITHM Q6 SC Last administered on 02/02/17 00:32; Admin Dose 1 UNIT; Start 01/31/17 at 18:00 Lactobacillus Acidoph/Bulgaricus (Floranex) 1 tab TID GTB Last administered on 02/01/17 20:54; Admin Dose 1 TAB; Start 01/31/17 at 13:00 Lisinopril (Zestril) 10 mg BID GTB ; Start 01/31/17 at 21:00; Status Future Hold Morphine Sulfate (morphine) 1 mg Q2H PRN IV PAIN LEVEL 1-5; Start 01/31/17 at 13 :00 Morphine Sulfate (morphine) 2 mg Q2H PRN IV SEVERE PAIN LEVEL 7-10; Start at 13:00 Nystatin (Nystatin Cr) 1 applic BID TOP Last administered on 02/01/17 20:55; Admin Dose 1 APPLIC; Start 01/31/17 at 21:00 Nystatin (Nystatin Powder) 1 applic BID TOP Last administered on 02/01/17 20:55 ; Admin Dose 1 APPLIC; Start 01/31/17 at 21:00 Olanzapine (Zyprexa Zydis) 2.5 mg BID SL Last administered on 02/01/17 20:54; Admin Dose 2.5 MG; Start 01/31/17 at 21:00 Ondansetron HCl (Zofran Inj) 4 mg Q6H PRN IV NAUSEA AND/OR VOMITING; Start 01/31 at 13:00 Quetiapine Fumarate (Seroquel) 25 mg Q6 PRN GTB PSYCHOSIS; Start 01/31/17 at 13: 00 Polyethylene Glycol (Miralax) 17 gm DAILY PRN GTB CONSTIPATION; Start 01/31/17 at 13:00 Zinc Sulfate (Zinc Sulfate) 220 mg DAILY GTB Last administered on 02/01/17 09: 52; Admin Dose 220 MG; Start 02/01/17 at 09:00 Miscellaneous Information 1 ea NOTE XX ; Start 01/31/17 at 14:00 Glucose (Glutose) 15 gm Q15M PRN PO DECREASED GLUCOSE; Start 01/31/17 at 14:00 Glucose (Glutose) 22.5 gm Q15M PRN PO DECREASED GLUCOSE; Start 01/31/17 at 14:00 Dextrose (D50w Syringe) 25 ml Q15M PRN IV DECREASED GLUCOSE; Start 01/31/17 at 14:00 Dextrose (D50w Syringe) 50 ml Q15M PRN IV DECREASED GLUCOSE; Start 01/31/17 at 14:00 Glucagon (Glucagen) 1 mg Q15M PRN IM DECREASED GLUCOSE; Start 01/31/17 at 14:00 Glucose (Glutose) 15 gm Q15M PRN BUCCAL DECREASED GLUCOSE; Start 01/31/17 at 14: 00 Diltiazem HCl (Cardizem) 30 mg Q6 GTB Last administered on 02/02/17 05:03; Admin Dose 30 MG; Start 01/31/17 at 18:00 Sodium Bicarbonate (Sodium Bicarbonate Tab) 650 mg Q8 PO Last administered on t 05:03; Admin Dose 650 MG; Start 02/01/17 at 09:00 SAMANTHA VÁZQUEZ Feb 02, 2017 07:34
[2017-02-02 08:05] LABS: ALBUMIN 2.4 g/dl (3.3-4.9)
[2017-02-02] MEDS: ASCORBIC ACID 500 MG TAB GTB SCH (08:06)
[2017-02-02] MEDS: FOLIC ACID 1 MG TAB GTB SCH (08:06)
[2017-02-02] MEDS: ZINC SULFATE 220 MG CAP GTB SCH (08:06)
[2017-02-02] MEDS: OLANZAPINE (ODT) 5 MG TAB SL SCH ×2 (08:06→20:36)
[2017-02-02] MEDS: LINEZOLID 600 MG/D5W (PMX) 300 ML IVPB SCH (08:06)
[2017-02-02] MEDS: LACTOBACILLUS CHEW TAB GTB SCH ×3 (08:06→20:36)
[2017-02-02] MEDS: NYSTATIN 30 GM POWDER BTL TOP SCH ×2 (08:06→20:37)
[2017-02-02] MEDS: MEROPENEM 500 MG/100 ML (PMX) 100 ML IVPB SCH ×2 (08:06→20:36)
[2017-02-02] MEDS: NYSTATIN 15 GM CR TOP SCH ×2 (08:07→20:37)
[2017-02-02 08:08] LABS: TOTAL PROTEIN 5.6 g/dl (6.1-8.1)
--- NOTE | 2017-02-02 08:27 | PN ---
DATE: 02/02/2017 SUBJECTIVE: The patient remains critical, but stable, no acute events overnight. No hemoptysis, he matemesis, or hematochezia, urinary output has been marginal. OBJECTIVE: VITAL SIGNS: Blood pressure is 115/53, respirations 35, pulse 71, temperature 98.0. I'S AND O'S: The patient had 2.7 L in, 500 mL out. HEENT: Head is normocephalic. NECK: Supple. HEART: Regular rate. LUNGS: Show diminished breath sounds at the base. ABDOMEN: Soft, nontender to palpation. No rebound or guarding. EXTREMITIES: Negative for clubbing, cyanosis. Positive edema, +4 pitting edema, diffuse anasarca. DERMATOLOGIC: No rashes. MUSCULOSKELETAL: No joint effusions. Noted positive wounds. NEUROLOGIC: No change in exam. LABORATORY DATA: Shows a white count of 25.7, hemoglobin 7.5, hematocrit 23.1, platelet count is 38 5. The patient's sodium 133, potassium 4.0, chloride 96, BUN 85, creatinine 3.08. ABG was reviewed . IMAGING STUDIES: The patient's renal ultrasound shows bilateral thin cortices, simple cyst, no evid ence of hydronephrosis. ASSESSMENT AND PLAN: 1. Acute gastrointestinal bleed. Etiology is possibly hemorrhoidal. The patient is status post EG D, colonoscopy. No evidence of active bleeding. Hemoglobin levels remain low, but overall stable. Will continue to monitor closely. We will repeat an iron panel. Consider IV iron. Follow up with GI for recommendations. 2. Nonoliguric acute kidney injury on top of chronic kidney with previous baseline creatinine 1.3 m g/dL. Etiology of acute kidney injury secondary to acute tubular necrosis due to sepsis, nephrotoxi [place], hemodynamics. Renal function remains stable in the last 48 hours. Repeat urinalysis shows no active sediment. Renal ultrasound shows no obstruction. At this point, continue current treatment plan. Continue supportive care, renally dose all meds. Will continue to hold ANDREINA inhibitor. Cont inue low dose diuretic therapies. The patient remains grossly volume overloaded. 3. Volume overload with diffuse anasarca, etiology secondary to sepsis, capillary leak, third spaci ng. Continue to monitor I's and O's. Continue to optimize nutrition. Continue gentle diuresis. M onitor renal function closely. 4. Hyponatremia secondary to acute kidney injury with decreased free water urinary excretion. We w ill limit free water flushes, continue to monitor. 5. Ventilatory-dependent respiratory failure. Vent settings have been reviewed. ABGs reviewed. C ontinue to monitor. 6. Dysphagia status post percutaneous endoscopic gastrostomy. Continue tube feeding. 7. Sepsis. Underlying source unclear, possibly due to Pseudomonas tracheobronchitis. The patient is on broad-spectrum antibiotics. The patient's white count remains elevated. Appreciate ID's eval uation. The patient may require WBC tagged scan, monitor closely. 8. History of Clostridium difficile. The patient remains on empiric metronidazole. Continue. 9. Acute on chronic encephalopathy. No change. Etiology is toxic metabolic. 10. Congestive heart failure exacerbation, possibly diastolic. Continue medical management as abov e. Follow up with cardiology. 11. Anemia. Continue to monitor hemoglobin and hematocrit levels as stated above. Will transfuse as needed. 12. History of hypertension. Blood pressure currently controlled. 13. History atrial flutter. The patient is currently stable. Continue medical management. Please note I spent over 40 minutes of critical care time with this patient. Discussed the case wit h the hospital staff. Dictated By: SHANTEL FAJARDO/HAFSA Conf#: [id number] DID#: [id number]
[2017-02-02] MEDS ORDERED: LIDOCAINE 1% (MDV) 20 ML INJ SC ONE (09:30)
--- NOTE | 2017-02-02 09:30 | RADRPT ---
PROCEDURE: XR Chest. CLINICAL INDICATION: 81-year-old female with congestive heart failure. Follow-up imaging. TECHNIQUE: Single frontal view of the chest was obtained COMPARISON: Chest x-ray 02/01/2017 06:20 a.m. FINDINGS: The soft tissues are normal. There are degenerative osteophytes in the thoracic spine. The left ve ntricle is enlarged. The cardiomediastinal silhouette and hilar structures are normal. Atherosclero tic changes are present the aortic arch. The pulmonary vasculature is increased with bilateral inte rstitial infiltrates a tracheostomy tube is well-positioned at T3. The costophrenic angles are norm al. IMPRESSION: 1. Stable appearance of the bilateral interstitial infiltrates identified on 02/01/2017. An intersti tial pneumonitis or asymmetric interstitial pulmonary edema with or without pneumonia might present this fashion. 2. Left ventricular enlargement. 3. Suspect position of the tracheostomy tube at T3. 4. Atherosclerotic vascular disease. RPTAT:AAJJ Physician Devin Date Time Electronically viewed and signed by Maico Silverio Physician on 02/02/2017 09:30 MANA/
--- NOTE | 2017-02-02 09:46 | PN ---
DATE: 02/02/2017 CARDIOLOGY FOLLOWUP SUBJECTIVE: Discussed with the staff. Rhythm strip is reviewed. The patient is in the ICU on the vent, status post tracheostomy, remains in atrial fibrillation flutter. Heart rate has remained sta ble. Blood pressure currently stable. No or active bleeding is reported, but H and H has been drop ping again. The patient has no chest pain or pressure. MEDICATIONS: Reviewed as per medical reconciliation, personally reviewed. PHYSICAL EXAMINATION: VITAL SIGNS: Temperature 98, heart rate of 74, blood pressure 115/53, respiratory rate of 35, satur ating 100% on the vent, 30% oxygen. HEENT: Normocephalic, atraumatic. Obese female. Pupils are equal and round. NECK: Status post tracheostomy, on the vent. CARDIOVASCULAR: Irregularly irregular, systolic murmur. PULMONARY: Mild rhonchi, diffuse. GASTROINTESTINAL: Soft, obese, nontender. EXTREMITIES: With diffuse upper and lower extremity edema. NEUROLOGIC: Awake, responds appropriately. LABORATORY: WBC of 25.7, hemoglobin 7.5, platelets of 385. Sodium 133, potassium 4, BUN of 85, cre atinine of 3.08, glucose of 108. Magnesium is 1.9. Albumin is 2.4. Alkaline phosphatase 11,099. ASSESSMENT AND PLAN: 1. Gastrointestinal bleed ____ hemorrhoids. 2. Hypoxic respiratory failure, status post tracheostomy, vent dependent. 3. Atrial fibrillation/flutter, unable to anticoagulate due to above. 4. Renal failure, acute on chronic. 5. Fluid overload, anasarca. 6. Malnutrition and low albumin level. 7. Electrolyte abnormality with hyponatremia. 8. Markedly elevated alkaline phosphatase. 9. Dysphagia, status post PEG placement. 10. Sepsis and leukocytosis. 11. History of Clostridium difficile. 12. Fluid overload status post congestive heart failure secondary to diastolic dysfunction and maln utrition and fluid overload. 13. Severe anemia. 14. History of hypertension, currently stable. RECOMMENDATIONS: Transfusion will be given p.r.n. Digoxin will be continued. Diuresis as per vadim chu given her renal failure. ANDREINA inhibitor has been on hold. I will discontinue it completely for no w given her acute renal failure. Respiratory care will be continued. Dictated By: JOSE ROBERTO SALDIVAR/HAFSA Conf#: [id number] DID#: [id number] CC: SHANTEL MINOR DO;*EndCC*
--- NOTE | 2017-02-02 11:16 | CONS ---
Date/Time of Note Date/Time of Note DATE: 02/02/17 TIME: 11:12 Assessment/Plan Assessment/Plan Chief Complaint/Hosp Course assessment/impression - sepsis - persistent leukocytosis. 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 s/p EGD and colo without clear e/ o source - h/o C diff colitis in 09/2016 per Pt's family members - diarrhea, C diff tests have been repeatedly negative at [facility]. Pt completed an empiric course of pGT and IV metronidazole, however - TEA - VDRF s/p tracheostomy - PEG tube dependence - h/o ileus - h/o lung CA - anemia recommendations - WBC tagged scan is scheduled once an adequate IV access is established - in light of lower Hgb, will d/c linezolid (blood cultures from 01/26/2017 were negative) - will repeat pancultures if temp>100.4F - continue meropenem (01/29/2017), continue empiric caspofungin (01/30/2017) management d/w Pt's PHYSICIAN SURGEON the critical care time I took to care for this Pt today was from 1030 to 1100 Problems: Consultation Date/Type/Reason Admit Date/Time Jan 30, 2017 at 13:13 Initial Consult Date 01/30/17 Type of Consultation: ID Referring Provider: BECKY RUIZ MD 24 HR Interval Summary Subjective hx not possible: pt non-verbal Exam/Review of Systems Vital Signs Vitals Vital Signs Date Time Temp Pulse Resp B/P Pulse Ox O2 Delivery O2 Flow Rate FiO2 02/02/17 08:00 74 02/02/17 06:00 35 115/53 100 Mechanical Ventilator 02/02/17 05:51 30 02/02/17 04:00 98.0 Intake and Output 02/01/17 02/01/17 02/02/17 15:00 23:00 07:00 Intake Total 940 ml 1190 ml 585 ml Output Total 355 ml 155 ml Balance 940 ml 835 ml 430 ml Exam Constitutional: frail, non-verbal Psych: confusion Head: atraumatic, normocephalic Eyes: nl conjunctiva, nl lids ENMT: nl external ears & nose Neck: other (trach) Respiratory: crackles/rales, diminished breath sounds Cardiovascular: nl pulses, regular rate and rhythm Gastrointestinal: non-tender, other (GT), soft Genitourinary - Female: other (FC) Musculoskeletal: No swelling Extremities: edema Neurological: confused Skin: ecchymosis Results Result Diagram: 02/02/17 0420 02/02/17 0430 Results 24 hrs Laboratory Tests Test 02/01/17 12:36 02/01/17 14:50 02/01/17 16:00 02/01/17 17:43 Bedside Glucose 107 128 Hematocrit 22.9 L Hemoglobin 7.7 L Urine Bacteria MODERATE Urine Bilirubin NEGATIVE Urine Clarity CLOUDY Urine Color LT. YELLOW Urine Glucose NEGATIVE Urine Hemoglobin NEGATIVE Urine Ketones NEGATIVE Urine Leukocyte Esterase 1+ H Urine Microscopic RBC 2-5 Urine Microscopic WBC 5-10 Urine Nitrite NEGATIVE Urine Random Creatinine 46.04 Urine Random Sodium 35 Urine Specific [place] 1.015 Urine Squamous Epithelial Cells MODERATE Urine Total Protein 36.0 H Urine Transitional Epithelial Cells MODERATE Urine Urobilinogen 0.2 E.U./dL Urine Yeast MODERATE Urine pH 5.0 Test 02/02/17 00:28 02/02/17 04:20 02/02/17 04:30 02/02/17 05:13 Bedside Glucose 143 121 Basophils # 0.1 Basophils % 0.3 Eosinophils # 0.0 Eosinophils % 0.1 Hematocrit 23.1 L Hemoglobin 7.5 L Lymphocytes # 1.6 Lymphocytes % 6.2 L Mean Corpuscular Hemoglobin 29.5 Mean Corpuscular Hemoglobin Concent 32.5 Mean Corpuscular Volume 90.9 Mean Platelet Volume 10.4 Monocytes # 1.2 H Monocytes % 4.8 Neutrophils # 18.3 H Neutrophils % 71.2 Nucleated Red Blood Cells # 0.0 Nucleated Red Blood Cells % 0.0 Platelet Count 385 Red Blood Count 2.54 L Red Cell Distribution Width 20.2 H White Blood Count 25.7 H Alanine Aminotransferase (ALT/SGPT) 41 Albumin 2.4 L Alkaline Phosphatase 1199 H Anion Gap 19 H Aspartate Amino Transf (AST/SGOT) 57 H Blood Urea Nitrogen 85 H Calcium Level 8.5 Carbon Dioxide Level 21 Chloride Level 97 Creatinine 3.08 H Direct Bilirubin 0.00 Glucose Level 107 Indirect Bilirubin 0.0 Magnesium Level 1.9 Phosphorus Level 4.6 Potassium Level 4.0 Sodium Level 133 L Total Bilirubin 0.0 L Total Protein 5.6 L Medications Medications Current Medications Meropenem 100 ml @ 200 mls/hr Q12 IVPB Last administered on 02/02/17 08:06; Admin Dose 200 MLS/HR; Start 01/30/17 at 21:00 Caspofungin 50 mg/ Sodium Chloride 250 ml @ 250 mls/hr Q24H IVPB Last administered on 02/01/17 18:01; Admin Dose 250 MLS/HR; Start 01/31/17 at 18:00 Linezolid (Zyvox 600mg/D5W (Pmx)) 300 ml @ 300 mls/hr Q12 IVPB Last administered on 02/02/17 08:06; Admin Dose 300 MLS/HR; Start 01/30/17 at 21:00 Lansoprazole (Prevacid) 30 mg BID@06,18 GTB Last administered on 02/02/17 05:03 ; Admin Dose 30 MG; Start 01/31/17 at 18:00 Ascorbic Acid (Vitamin C) 500 mg DAILY GTB Last administered on 02/02/17 08:06 ; Admin Dose 500 MG; Start 02/01/17 at 09:00 Folic Acid (Folic Acid) 1 mg DAILY GTB Last administered on 02/02/17 08:06; Admin Dose 1 MG; Start 02/01/17 at 09:00 Hydralazine HCl (Apresoline) 10 mg Q6H PRN IV ELEVATED BLOOD PRESSURE; Start at 13:00 Acetaminophen/ Hydrocodone Bitart ([place] (5/325)) 1 tab Q6H PRN GTB PAIN LEVEL 1-5 Last administered on 01/31/17 13:42; Admin Dose 1 TAB; Start 01/31/17 at 13: 00 Acetaminophen/ Hydrocodone Bitart ([place] (5/325)) 2 tab Q6H PRN GTB PAIN LEVEL 6-10; Start 01/31/17 at 13:00 Insulin Aspart (Novolog Insulin Pen) NOVOLOG *MILD* ALGORITHM Q6 SC Last administered on 02/02/17 00:32; Admin Dose 1 UNIT; Start 01/31/17 at 18:00 Lactobacillus Acidoph/Bulgaricus (Floranex) 1 tab TID GTB Last administered on 02/02/17 08:06; Admin Dose 1 TAB; Start 01/31/17 at 13:00 Morphine Sulfate (morphine) 1 mg Q2H PRN IV PAIN LEVEL 1-5; Start 01/31/17 at 13 :00 Morphine Sulfate (morphine) 2 mg Q2H PRN IV SEVERE PAIN LEVEL 7-10; Start at 13:00 Nystatin (Nystatin Cr) 1 applic BID TOP Last administered on 02/02/17 08:07; Admin Dose 1 APPLIC; Start 01/31/17 at 21:00 Nystatin (Nystatin Powder) 1 applic BID TOP Last administered on 02/02/17 08:06 ; Admin Dose 1 APPLIC; Start 01/31/17 at 21:00 Olanzapine (Zyprexa Zydis) 2.5 mg BID SL Last administered on 02/02/17 08:06; Admin Dose 2.5 MG; Start 01/31/17 at 21:00 Ondansetron HCl (Zofran Inj) 4 mg Q6H PRN IV NAUSEA AND/OR VOMITING; Start 01/31 at 13:00 Quetiapine Fumarate (Seroquel) 25 mg Q6 PRN GTB PSYCHOSIS; Start 01/31/17 at 13: 00 Polyethylene Glycol (Miralax) 17 gm DAILY PRN GTB CONSTIPATION; Start 01/31/17 at 13:00 Zinc Sulfate (Zinc Sulfate) 220 mg DAILY GTB Last administered on 02/02/17 08: 06; Admin Dose 220 MG; Start 02/01/17 at 09:00 Miscellaneous Information 1 ea NOTE XX ; Start 01/31/17 at 14:00 Glucose (Glutose) 15 gm Q15M PRN PO DECREASED GLUCOSE; Start 01/31/17 at 14:00 Glucose (Glutose) 22.5 gm Q15M PRN PO DECREASED GLUCOSE; Start 01/31/17 at 14:00 Dextrose (D50w Syringe) 25 ml Q15M PRN IV DECREASED GLUCOSE; Start 01/31/17 at 14:00 Dextrose (D50w Syringe) 50 ml Q15M PRN IV DECREASED GLUCOSE; Start 01/31/17 at 14:00 Glucagon (Glucagen) 1 mg Q15M PRN IM DECREASED GLUCOSE; Start 01/31/17 at 14:00 Glucose (Glutose) 15 gm Q15M PRN BUCCAL DECREASED GLUCOSE; Start 01/31/17 at 14: 00 Diltiazem HCl (Cardizem) 30 mg Q6 GTB Last administered on 02/02/17 05:03; Admin Dose 30 MG; Start 01/31/17 at 18:00 Sodium Bicarbonate (Sodium Bicarbonate Tab) 650 mg Q8 PO Last administered on 05:03; Admin Dose 650 MG; Start 02/01/17 at 09:00 VERN WOODS M.D. Feb 02, 2017 11:15
--- NOTE | 2017-02-02 12:44 | RADRPT ---
PROCEDURE: US guidance for PICC line CLINICAL INDICATION: PICC line placement TECHNIQUE: Multiple real-time images were acquired of the patient's arm utilizing a high resolutio n transducer. This was performed by the PICC line nurse for venous access. COMPARISON: None FINDINGS: Ultrasound guidance for PICC line placement. IMPRESSION: Ultrasound guidance for PICC line placement. RPTAT: AA .Jacek Leon MD, MD Date Time Electronically viewed and signed by .Jacek Leon MD, on 02/02/2017 12:44 .S/
[2017-02-02 13:27] LABS: IRON 48 ug/dl (35-150)
[2017-02-02 13:36] LABS: TOTAL IRON BINDING CAPACITY 132 ug/dl (241-421)
--- NOTE | 2017-02-02 17:42 | RADRPT ---
PROCEDURE: XR Chest. CLINICAL INDICATION: Check PICC line position. TECHNIQUE: Single frontal view. COMPARISON: 02/02/2017. 0733 hours. FINDINGS: There is a left arm PICC line with the tip in the lower superior vena cava. The tracheostomy tube r emains in satisfactory position. Bilateral interstitial pulmonary disease with right worse than lef t is unchanged. The heart is enlarged. There is calcification in the aorta consistent with atherosclerosis. There is no pleural effusion. There is no pneumothorax. IMPRESSION: 1. Satisfactory position of left arm PICC line. 2. No other change from the prior study done earlier the same day. RPTAT: QQ .Thanh Shaffer MD, MD Date Time Electronically viewed and signed by .Thanh Shaffer MD, MD on 02/02/2017 17:42 .R/
[2017-02-02] MEDS: CASPOFUNGIN 50 MG in SOD CHLORIDE 0.9% 250 ML IVPB SCH (18:43)
--- NOTE | 2017-02-02 19:42 | CONS ---
Date/Time of Note Date/Time of Note DATE: 02/02/17 TIME: 19:40 Assessment/Plan Assessment/Plan Chief Complaint/Hosp Course Impression 1. symptomatic anemia secondary to recurrent GIB: occult blood positive as tested by my rectal exam on 01-30-17. EGD and colonoscopy did not show any active bleeding source except hemorrhoids. 2. sepsis with persistent leukocytosis. Screening CT of chest/abd/pel on 2016 did not demonstrate a clear infectious process other than pneumonia 3. persistent pseudomonas in the airway 4. h/o C diff colitis in 09/2016 per Pt's family members. Although patient hasdiarrhea, C diff tests have been repeatedly negative at [facility] and [facility]. 5. Respiratory failure s/p tracheostomy 6. Dysphagia s/p PEG tube with dependence Recommendations - consider surgical eval for hemorrhoids as it is the most likely cause if it is GI bleeding - consider Javascript Front End Developer eval to r/o Javascript Front End Developer causes of bleeding as 2 colonoscopies done at different facility by 2 different endoscopists did not reveal source of patient' s GI bleed. One will need to consider Javascript Front End Developer bleeding. - management of patient's sepsis per ID - continue all other supportive care - ok to transfer back to [facility] from GI perspective Problems: Consultation Date/Type/Reason Admit Date/Time Jan 30, 2017 at 13:13 Type of Consultation: GI Referring Provider: BECKY RUIZ MD 24 HR Interval Summary Free Text/Dictation intubated and sedated Exam/Review of Systems Vital Signs Vitals Vital Signs Date Time Temp Pulse Resp B/P Pulse Ox O2 Delivery O2 Flow Rate FiO2 02/02/17 19:28 69 35 97 30 02/02/17 19:00 132/50 Mechanical Ventilator 02/02/17 15:00 98.0 Intake and Output 02/01/17 02/01/17 02/02/17 15:00 23:00 07:00 Intake Total 940 ml 1190 ml 640 ml Output Total 355 ml 180 ml Balance 940 ml 835 ml 460 ml Exam Psych: confusion Head: atraumatic, normocephalic Eyes: EOMI, nl conjunctiva, nl lids ENMT: nl external ears & nose, nl lips & teeth, nl nasal mucosa & septum Neck: non-tender, supple Respiratory: clear to auscultation, normal air movement Cardiovascular: nl pulses, regular rate and rhythm Gastrointestinal: bowel sounds, non-tender, soft Results Result Diagram: 02/02/17 0420 02/02/17 0430 Results 24 hrs Laboratory Tests Test 02/02/17 00:28 02/02/17 04:20 02/02/17 04:30 02/02/17 05:13 Bedside Glucose 143 121 Basophils # 0.1 Basophils % 0.3 Eosinophils # 0.0 Eosinophils % 0.1 Hematocrit 23.1 L Hemoglobin 7.5 L Lymphocytes # 1.6 Lymphocytes % 6.2 L Mean Corpuscular Hemoglobin 29.5 Mean Corpuscular Hemoglobin Concent 32.5 Mean Corpuscular Volume 90.9 Mean Platelet Volume 10.4 Monocytes # 1.2 H Monocytes % 4.8 Neutrophils # 18.3 H Neutrophils % 71.2 Nucleated Red Blood Cells # 0.0 Nucleated Red Blood Cells % 0.0 Platelet Count 385 Red Blood Count 2.54 L Red Cell Distribution Width 20.2 H White Blood Count 25.7 H Alanine Aminotransferase (ALT/SGPT) 41 Albumin 2.4 L Alkaline Phosphatase 1199 H Anion Gap 19 H Aspartate Amino Transf (AST/SGOT) 57 H Blood Urea Nitrogen 85 H Calcium Level 8.5 Carbon Dioxide Level 21 Chloride Level 97 Creatinine 3.08 H Direct Bilirubin 0.00 Ferritin 1710.0 H Glucose Level 107 Indirect Bilirubin 0.0 Iron Level 48 Magnesium Level 1.9 Percent Iron Saturation 36 Phosphorus Level 4.6 Potassium Level 4.0 Sodium Level 133 L Total Bilirubin 0.0 L Total Iron Binding Capacity 132 L Total Protein 5.6 L Test 02/02/17 13:55 02/02/17 17:49 Bedside Glucose 105 112 Medications Medications Current Medications Meropenem 100 ml @ 200 mls/hr Q12 IVPB Last administered on 02/02/17 08:06; Admin Dose 200 MLS/HR; Start 01/30/17 at 21:00 Caspofungin/ Sodium Chloride (Cancidas/NS) 250 ml @ 250 mls/hr Q24H IVPB Last administered on 02/02/17 18:43; Admin Dose 250 MLS/HR; Start 01/31/17 at 18:00 Lansoprazole (Prevacid) 30 mg BID@06,18 GTB Last administered on 02/02/17 18:43 ; Admin Dose 30 MG; Start 01/31/17 at 18:00 Ascorbic Acid (Vitamin C) 500 mg DAILY GTB Last administered on 02/02/17 08:06 ; Admin Dose 500 MG; Start 02/01/17 at 09:00 Folic Acid (Folic Acid) 1 mg DAILY GTB Last administered on 02/02/17 08:06; Admin Dose 1 MG; Start 02/01/17 at 09:00 Hydralazine HCl (Apresoline) 10 mg Q6H PRN IV ELEVATED BLOOD PRESSURE; Start at 13:00 Acetaminophen/ Hydrocodone Bitart ([place] (5/325)) 1 tab Q6H PRN GTB PAIN LEVEL 1-5 Last administered on 01/31/17 13:42; Admin Dose 1 TAB; Start 01/31/17 at 13: 00 Acetaminophen/ Hydrocodone Bitart ([place] (5/325)) 2 tab Q6H PRN GTB PAIN LEVEL 6-10; Start 01/31/17 at 13:00 Insulin Aspart (Novolog Insulin Pen) NOVOLOG *MILD* ALGORITHM Q6 SC Last administered on 02/02/17 00:32; Admin Dose 1 UNIT; Start 01/31/17 at 18:00 Lactobacillus Acidoph/Bulgaricus (Floranex) 1 tab TID GTB Last administered on 02/02/17 14:00; Admin Dose 1 TAB; Start 01/31/17 at 13:00 Morphine Sulfate (morphine) 1 mg Q2H PRN IV PAIN LEVEL 1-5; Start 01/31/17 at 13 :00 Morphine Sulfate (morphine) 2 mg Q2H PRN IV SEVERE PAIN LEVEL 7-10; Start at 13:00 Nystatin (Nystatin Cr) 1 applic BID TOP Last administered on 02/02/17 08:07; Admin Dose 1 APPLIC; Start 01/31/17 at 21:00 Nystatin (Nystatin Powder) 1 applic BID TOP Last administered on 02/02/17 08:06 ; Admin Dose 1 APPLIC; Start 01/31/17 at 21:00 Olanzapine (Zyprexa Zydis) 2.5 mg BID SL Last administered on 02/02/17 08:06; Admin Dose 2.5 MG; Start 01/31/17 at 21:00 Ondansetron HCl (Zofran Inj) 4 mg Q6H PRN IV NAUSEA AND/OR VOMITING; Start 01/31 at 13:00 Quetiapine Fumarate (Seroquel) 25 mg Q6 PRN GTB PSYCHOSIS; Start 01/31/17 at 13: 00 Polyethylene Glycol (Miralax) 17 gm DAILY PRN GTB CONSTIPATION; Start 01/31/17 at 13:00 Zinc Sulfate (Zinc Sulfate) 220 mg DAILY GTB Last administered on 02/02/17 08: 06; Admin Dose 220 MG; Start 02/01/17 at 09:00 Miscellaneous Information 1 ea NOTE XX ; Start 01/31/17 at 14:00 Glucose (Glutose) 15 gm Q15M PRN PO DECREASED GLUCOSE; Start 01/31/17 at 14:00 Glucose (Glutose) 22.5 gm Q15M PRN PO DECREASED GLUCOSE; Start 01/31/17 at 14:00 Dextrose (D50w Syringe) 25 ml Q15M PRN IV DECREASED GLUCOSE; Start 01/31/17 at 14:00 Dextrose (D50w Syringe) 50 ml Q15M PRN IV DECREASED GLUCOSE; Start 01/31/17 at 14:00 Glucagon (Glucagen) 1 mg Q15M PRN IM DECREASED GLUCOSE; Start 01/31/17 at 14:00 Glucose (Glutose) 15 gm Q15M PRN BUCCAL DECREASED GLUCOSE; Start 01/31/17 at 14: 00 Diltiazem HCl (Cardizem) 30 mg Q6 GTB Last administered on 02/02/17 18:42; Admin Dose 30 MG; Start 01/31/17 at 18:00 Sodium Bicarbonate (Sodium Bicarbonate Tab) 650 mg Q8 PO Last administered on 14:08; Admin Dose 650 MG; Start 02/01/17 at 09:00 IV Flush (NS 10 ml) 10 ml PRN PRN IV IV PROTOCOL; Start 02/02/17 at 13:00 EDMUNDO HO MD Feb 02, 2017 19:41
[2017-02-03] VITALS (33 sets, daily range): BP systolic 42–127; BP diastolic 20–84; PULSE 69–100; RESP 0–35
[2017-02-03] MEDS: HYDROCODONE/APAP (5/325) TAB GTB PRN (03:28)
[2017-02-03 05:33] LABS: ADD SCAN DIFF NO
[2017-02-03 05:38] LABS: ABNORMAL IP MESSAGE 1; BASOPHIL # 0.1 10^3/ul (0.0-0.1); BASOPHILS % 0.3 % (0.0-2.0); EOSINOPHILS % 0.1 % (0.0-7.0); HEMATOCRIT 24.1 % (37.0-47.0); HEMOGLOBIN 8.1 g/dl (12.0-16.0); LYMPHOCYTES # 1.4 10^3/ul (0.8-2.9); LYMPHOCYTES % 6.1 % (15.0-51.0); MEAN CORPUSCULAR HEMOGLOBIN 30.2 pg (29.0-33.0); MEAN CORPUSCULAR HGB CONC 33.6 g/dl (32.0-37.0); MEAN CORPUSCULAR VOLUME 89.9 fl (82.0-101.0); MEAN PLATELET VOLUME 10.6 fl (7.4-10.4); MONOCYTE # 1.2 10^3/ul (0.3-0.9); NEUTROPHIL # 17.3 10^3/ul (1.6-7.5); NEUTROPHILS % 75.3 % (39.0-77.0); PLATELET COUNT 335 10^3/UL (140-415); RED BLOOD COUNT 2.68 10^6/ul (4.20-5.40); RED CELL DISTRIBUTION WIDTH 19.3 % (11.5-14.5)
[2017-02-03] MEDS: INSULIN ASPART [NOVOLOG] 3 ML PEN SC SCH ×4 (05:50→18:00)
[2017-02-03] MEDS: LANSOPRAZOLE 30 MG CAP GTB SCH ×2 (05:50→18:48)
[2017-02-03] MEDS: FUROSEMIDE 40 MG INJ IV SCH ×2 (05:50→18:48)
[2017-02-03] MEDS: NA BICARBONATE 650 MG TAB PO SCH ×2 (05:50→14:49)
[2017-02-03] MEDS: SPIRONOLACTONE 25 MG TAB NGT SCH (05:51)
[2017-02-03] MEDS: DILTIAZEM 30 MG TAB GTB SCH ×3 (05:51→18:00)
[2017-02-03 06:19] LABS: POTASSIUM 3.8 mmol/L (3.5-5.1)
[2017-02-03 06:22] LABS: CREATININE 3.03 mg/dl (0.44-1.00)
[2017-02-03 06:23] LABS: CALCIUM 8.4 mg/dl (8.4-10.2); MAGNESIUM 1.9 mg/dl (1.7-2.5); PHOSPHORUS 4.3 mg/dl (2.5-4.9)
[2017-02-03] MEDS ORDERED: EPOETIN 4000 UNITS/1 ML INJ (ESRD) SC ONE (07:30)
--- NOTE | 2017-02-03 07:32 | CONS ---
Date/Time of Note Date/Time of Note DATE: 02/03/17 TIME: 07:29 Assessment/Plan Assessment/Plan Additional Assessment/Plan Ventilator settings; AC of 35, tidal volume of 450, PEEP of 5, 30% FiO2. Assessment recommendations; next 1. Patient admitted with rectal bleed which has been attributed to hemorrhoids. Status post 1 packed RBC transfusion yesterday. 2. Multiple comorbidities include chronic respiratory failure which is highly ventilator dependent. History of hypertension, CHF, end-stage COPD, history of prior left lower lobectomy due to lung malignancy as well as chronic renal insufficiency. Continue current treatment. Patient was transferred to the rehab center. Overall prognosis remains poor. Consultation Date/Type/Reason Admit Date/Time Jan 30, 2017 at 13:13 Initial Consult Date 01/30/17 Type of Consultation: Pulmonary/critical care Referring Provider: BECKY RUIZ MD 24 HR Interval Summary Free Text/Dictation Patient condition remains stable. Requiring full ventilator support at high assist control rate of 35 and is awake alert follows simple commands. Denies any chest pain, shortness of breath, abdominal pain. General examination; elderly lady, on ventilator via tracheostomy currently in no distress awake and alert. Exam/Review of Systems Vital Signs Vitals Vital Signs Date Time Temp Pulse Resp B/P Pulse Ox O2 Delivery O2 Flow Rate FiO2 02/03/17 05:03 71 35 100 30 02/03/17 03:58 98.5 116/51 Mechanical Ventilator Intake and Output 02/02/17 02/02/17 02/03/17 15:00 23:00 07:00 Intake Total 540 ml 670 ml 810 ml Output Total 230 ml 115 ml 350 ml Balance 310 ml 555 ml 460 ml Exam HEENT examination; supple neck, JVD difficult to see because of short neck. Tracheostomy in place with clean insertion site. Pupils are midsize and reactive to light. No neck masses, no thyromegaly. Chest examination; diminished but clear breath sounds bilaterally. S1-S2 audible, no murmurs. Regular rhythm. Abdomen examination; soft, protuberant. G-tube in place. Bowel sounds audible. Extremity examination; 1+ anasarca. Pulses 1+ bilaterally. There is no clubbing. Multiple small ecchymoses are present in all 4 extremities. BRAND ATTENDANT examination; patient is awake alert follows simple commands moves all 4 extremities but has severe generalized weakness. Results Result Diagram: 02/03/17 0400 02/03/17 0400 Results 24 hrs Laboratory Tests Test 02/02/17 13:55 02/02/17 17:49 02/03/17 00:01 02/03/17 04:00 Bedside Glucose 105 112 123 Anion Gap 19 H Basophils # 0.1 Basophils % 0.3 Blood Urea Nitrogen 84 H Calcium Level 8.4 Carbon Dioxide Level 21 Chloride Level 97 Creatinine 3.03 H Eosinophils # 0.0 Eosinophils % 0.1 Glucose Level 101 Hematocrit 24.1 L Hemoglobin 8.1 L Lymphocytes # 1.4 Lymphocytes % 6.1 L Magnesium Level 1.9 Mean Corpuscular Hemoglobin 30.2 Mean Corpuscular Hemoglobin Concent 33.6 Mean Corpuscular Volume 89.9 Mean Platelet Volume 10.6 H Monocytes # 1.2 H Monocytes % 5.0 Neutrophils # 17.3 H Neutrophils % 75.3 Nucleated Red Blood Cells # 0.0 Nucleated Red Blood Cells % 0.0 Phosphorus Level 4.3 Platelet Count 335 Potassium Level 3.8 Red Blood Count 2.68 L Red Cell Distribution Width 19.3 H Sodium Level 133 L White Blood Count 23.0 H Test 02/03/17 05:49 Bedside Glucose 119 Medications Medications Current Medications Meropenem 100 ml @ 200 mls/hr Q12 IVPB Last administered on 02/02/17 20:36; Admin Dose 200 MLS/HR; Start 01/30/17 at 21:00 Caspofungin/ Sodium Chloride (Cancidas/NS) 250 ml @ 250 mls/hr Q24H IVPB Last administered on 02/02/17 18:43; Admin Dose 250 MLS/HR; Start 01/31/17 at 18:00 Lansoprazole (Prevacid) 30 mg BID@06,18 GTB Last administered on 02/03/17 05:50 ; Admin Dose 30 MG; Start 01/31/17 at 18:00 Ascorbic Acid (Vitamin C) 500 mg DAILY GTB Last administered on 02/02/17 08:06 ; Admin Dose 500 MG; Start 02/01/17 at 09:00 Folic Acid (Folic Acid) 1 mg DAILY GTB Last administered on 02/02/17 08:06; Admin Dose 1 MG; Start 02/01/17 at 09:00 Hydralazine HCl (Apresoline) 10 mg Q6H PRN IV ELEVATED BLOOD PRESSURE; Start at 13:00 Acetaminophen/ Hydrocodone Bitart ([place] (5/325)) 1 tab Q6H PRN GTB PAIN LEVEL 1-5 Last administered on 02/03/17 03:28; Admin Dose 1 TAB; Start 01/31/17 at 13: 00 Acetaminophen/ Hydrocodone Bitart ([place] (5/325)) 2 tab Q6H PRN GTB PAIN LEVEL 6-10; Start 01/31/17 at 13:00 Insulin Aspart (Novolog Insulin Pen) NOVOLOG *MILD* ALGORITHM Q6 SC Last administered on 02/02/17 00:32; Admin Dose 1 UNIT; Start 01/31/17 at 18:00 Lactobacillus Acidoph/Bulgaricus (Floranex) 1 tab TID GTB Last administered on 02/02/17 20:36; Admin Dose 1 TAB; Start 01/31/17 at 13:00 Morphine Sulfate (morphine) 1 mg Q2H PRN IV PAIN LEVEL 1-5; Start 01/31/17 at 13 :00 Morphine Sulfate (morphine) 2 mg Q2H PRN IV SEVERE PAIN LEVEL 7-10; Start at 13:00 Nystatin (Nystatin Cr) 1 applic BID TOP Last administered on 02/02/17 20:37; Admin Dose 1 APPLIC; Start 01/31/17 at 21:00 Nystatin (Nystatin Powder) 1 applic BID TOP Last administered on 02/02/17 08:06 ; Admin Dose 1 APPLIC; Start 01/31/17 at 21:00 Olanzapine (Zyprexa Zydis) 2.5 mg BID SL Last administered on 02/02/17 20:36; Admin Dose 2.5 MG; Start 01/31/17 at 21:00 Ondansetron HCl (Zofran Inj) 4 mg Q6H PRN IV NAUSEA AND/OR VOMITING; Start 01/31 at 13:00 Quetiapine Fumarate (Seroquel) 25 mg Q6 PRN GTB PSYCHOSIS; Start 01/31/17 at 13: 00 Polyethylene Glycol (Miralax) 17 gm DAILY PRN GTB CONSTIPATION; Start 01/31/17 at 13:00 Zinc Sulfate (Zinc Sulfate) 220 mg DAILY GTB Last administered on 02/02/17 08: 06; Admin Dose 220 MG; Start 02/01/17 at 09:00 Miscellaneous Information 1 ea NOTE XX ; Start 01/31/17 at 14:00 Glucose (Glutose) 15 gm Q15M PRN PO DECREASED GLUCOSE; Start 01/31/17 at 14:00 Glucose (Glutose) 22.5 gm Q15M PRN PO DECREASED GLUCOSE; Start 01/31/17 at 14:00 Dextrose (D50w Syringe) 25 ml Q15M PRN IV DECREASED GLUCOSE; Start 01/31/17 at 14:00 Dextrose (D50w Syringe) 50 ml Q15M PRN IV DECREASED GLUCOSE; Start 01/31/17 at 14:00 Glucagon (Glucagen) 1 mg Q15M PRN IM DECREASED GLUCOSE; Start 01/31/17 at 14:00 Glucose (Glutose) 15 gm Q15M PRN BUCCAL DECREASED GLUCOSE; Start 01/31/17 at 14: 00 Diltiazem HCl (Cardizem) 30 mg Q6 GTB Last administered on 02/02/17 18:42; Admin Dose 30 MG; Start 01/31/17 at 18:00 Sodium Bicarbonate (Sodium Bicarbonate Tab) 650 mg Q8 PO Last administered on 05:50; Admin Dose 650 MG; Start 02/01/17 at 09:00 IV Flush (NS 10 ml) 10 ml PRN PRN IV IV PROTOCOL; Start 02/02/17 at 13:00 Epoetin Leandro (Epogen (Esrd)) 12,000 units ONCE ONCE SC ; Start 02/03/17 at 07:30 ; Stop 02/03/17 at 07:31; Status SAMANTHA FONSECA Feb 03, 2017 07:31
[2017-02-03] MEDS ORDERED: EPOETIN 2000 UNITS/1 ML INJ (ESRD) SC SCH (08:30)
[2017-02-03] MEDS ORDERED: EPOETIN 10000 UNITS/1 ML INJ (ESRD) SC SCH (08:30)
[2017-02-03] MEDS: ASCORBIC ACID 500 MG TAB GTB SCH (08:44)
[2017-02-03] MEDS: MEROPENEM 500 MG/100 ML (PMX) 100 ML IVPB SCH (08:44)
[2017-02-03] MEDS: LACTOBACILLUS CHEW TAB GTB SCH ×2 (08:44→14:49)
--- NOTE | 2017-02-03 08:44 | PN ---
DATE: 02/03/2017 CARDIOLOGY FOLLOWUP SUBJECTIVE: The patient remains status post tracheostomy, on the vent in the ICU. Heart rate has r emained stable. He remains in atrial fibrillation and flutter, though. Blood pressure on the low s jim, but overall stable. Discussed with the staff in the ICU. The patient had some urine output; h owever, still continues to be severely edematous. No reported chest pain or pressure. MEDICATIONS: Reviewed as per medical reconciliation, personally reviewed. PHYSICAL EXAMINATION: VITAL SIGNS: Temperature 98.5, heart rate of 71, blood pressure 116/51, respiratory rate of 35. HEENT: Normocephalic, atraumatic. Pupils are equal. NECK: Shows tracheostomy. CARDIOVASCULAR: Irregularly irregular, systolic murmur. PULMONARY: With mild rhonchi. GASTROINTESTINAL: Obese, soft. EXTREMITIES: With diffuse upper and lower extremity edema. NEUROLOGIC: Awake, responds appropriately. PSYCHIATRIC: Appears to be calm and pleasant. DERMATOLOGIC: Multiple ecchymoses. DIAGNOSTIC DATA: Chest x-ray shows stable appearance of the bilateral interstitial infiltrate. LABORATORY: WBC of 23.0, hemoglobin 8.1, platelets of 335,000. Sodium 133, potassium 3.8, BUN of 8 4, creatinine 3.03, glucose of 105. ASSESSMENT AND PLAN: 1. Hypoxic respiratory failure, status post tracheostomy, vent dependent. 2. Atrial fibrillation, rather chronic, on heart rate control, unable to anticoagulate due to bleed . 3. Gastrointestinal bleed. 4. Renal failure, acute on chronic. 5. Fluid overload, anasarca, malnutrition, and low albumin level. 6. Dysphagia. 7. 8. History of Clostridium difficile. 9. Severe anemia. 10. History of hypertension, currently hypotensive side. RECOMMENDATIONS: We will follow up with the GI recommendations. Continue the vent support. Heart rate is currently under control. Respiratory care will be continued. Diuresis as per Renal. Dictated By: JOSE ROBERTO SALDIVAR/HAFSA Conf#: [id number] DID#: [id number] CC: SHANTEL MINOR DO;*EndCC*
[2017-02-03] MEDS: OLANZAPINE (ODT) 5 MG TAB SL SCH (08:45)
[2017-02-03] MEDS: FOLIC ACID 1 MG TAB GTB SCH (08:46)
--- NOTE | 2017-02-03 08:46 | PN ---
DATE: 02/03/2017 SUBJECTIVE: The patient remains stable, but critical. No further episodes of GI bleeding. No hemo ptysis, hematemesis or hematochezia. The patient's urinary output has been marginal. OBJECTIVE: VITAL SIGNS: Blood pressure 116/51, respiratory rate 20, pulse 76, temperature 98.5. I's and O's: The patient had 2 liters in, 700 out. HEENT: Head is normocephalic. NECK: Supple. HEART: Regular rate. LUNGS: Show diminished breath sounds at the bases. ABDOMEN: Soft, nontender to palpation. No rebound or guarding. EXTREMITIES: Negative for clubbing, cyanosis. Positive edema. DERMATOLOGIC: No rashes. MUSCULOSKELETAL: No joint effusions. Positive wounds. NEUROLOGIC: No change in exam. MEDICATIONS: The patient's medications have been reviewed. LABORATORY DATA: Shows white count 23, hemoglobin 8.1, hematocrit 24.1, platelet count is 335. Sod ium 133, potassium 3.9, chloride 97, BUN 84, creatinine 3.03. IMAGING: Chest x-ray reviewed, shows stable bilateral infiltrates, possible asymmetrical edema, lef t ventricular enlargement. ASSESSMENT AND PLAN: 1. Acute gastrointestinal bleed. Etiology is likely hemorrhoidal. The patient is status post esop hagogastroduodenoscopy and colonoscopy, which showed no active evidence of bleeding. The patient's hemoglobin levels have been low, but stable. Continue to monitor. 2. Anemia secondary to chronic kidney disease and recent gastrointestinal bleed. The patient's hem oglobin and hematocrit levels have been low, but stable. Iron panel has been reviewed. We will giv e the patient 1 dose of Epogen and monitor. 3. Nonoliguric acute kidney injury on top of chronic kidney disease with previous baseline creatini ne 1.3 mg/dL. Etiology of acute kidney injury is secondary to acute tubular necrosis, hemodynamics, nephrotoxicity. The patient's renal function has stabilized over the last 48 to 72 hours, as the p atient appears to be entering maintenance phase of acute tubular necrosis. At this point, continue treatment plan, supportive care, renally dose all medications, avoid nephrotoxins. 4. Volume overload with diffuse anasarca secondary to sepsis and capillary leak, third spacing. Co ntinue to monitor I's and O's. Continue to optimize nutrition. Continue gentle diuresis. 5. Hyponatremia secondary to acute kidney injury. Continue free water and continue to limit free w ater flushes. 6. Ventilatory-dependent respiratory failure. Vent settings have been reviewed. ABG has been revi ewed. Continue to monitor. 7. Dysphagia status post percutaneous endoscopic gastrostomy. Continue tube feeding. 8. Sepsis. Etiology is multifactorial secondary to pseudomonas/tracheobronchitis. Continue curren t antibiotic regimen. Follow up with infectious disease. Cultures have been reviewed. 9. History of Clostridium difficile. Continue empiric metronidazole. 10. Acute on chronic encephalopathy. No change. Etiology is toxic metabolic. 11. History of congestive heart failure, possible diastolic failure. Continue medical management. Follow up with cardiology. 12. Hypotension. Etiology may be secondary to sepsis. Continue to monitor closely. 13. History of atrial flutter, currently stable, sinus rhythm. Continue current medical management . Please note I spent over 40 minutes of critical care time with this patient, discussed the case with the hospital staff. Dictated By: SHANTEL FAJARDO/HAFSA Conf#: [id number] DID#: [id number]
[2017-02-03] MEDS: NYSTATIN 15 GM CR TOP SCH (08:49)
[2017-02-03] MEDS: ZINC SULFATE 220 MG CAP GTB SCH (08:55)
[2017-02-03] MEDS: NYSTATIN 30 GM POWDER BTL TOP SCH (09:03)
[2017-02-03] MEDS ORDERED: SOD CHLORIDE 0.9% 100 ML ONE (09:33)
--- NOTE | 2017-02-03 09:43 | CONS ---
Date/Time of Note Date/Time of Note DATE: 02/03/17 TIME: 09:41 Assessment/Plan Assessment/Plan Chief Complaint/Hosp Course assessment/impression - sepsis - persistent leukocytosis. 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 s/p EGD and colo without clear e/ o source - h/o C diff colitis in 09/2016 per Pt's family members - diarrhea, C diff tests have been repeatedly negative at [facility]. 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 the critical care time I took to care for this Pt today was from 0900 to 0930 Problems: Consultation Date/Type/Reason Admit Date/Time Jan 30, 2017 at 13:13 Initial Consult Date 01/30/17 Type of Consultation: ID Referring Provider: BECKY RUIZ MD 24 HR Interval Summary Subjective hx not possible: pt non-verbal Exam/Review of Systems Vital Signs Vitals Vital Signs Date Time Temp Pulse Resp B/P Pulse Ox O2 Delivery O2 Flow Rate FiO2 02/03/17 05:03 71 35 100 30 02/03/17 03:58 98.5 116/51 Mechanical Ventilator Intake and Output 02/02/17 02/02/17 02/03/17 14:59 22:59 06:59 Intake Total 540 ml 725 ml 810 ml Output Total 225 ml 145 ml 350 ml Balance 315 ml 580 ml 460 ml Exam Constitutional: frail, non-verbal, obese Psych: nl mood/affect, no complaints Head: normocephalic Eyes: nl conjunctiva, nl lids ENMT: nl external ears & nose, nl nasal mucosa & septum Neck: other (trach) Respiratory: crackles/rales, diminished breath sounds Cardiovascular: nl pulses, regular rate and rhythm Gastrointestinal: non-tender, other (GT), soft, No distended, No tender Genitourinary - Female: other (FC) Musculoskeletal: No swelling Extremities: edema Neurological: lethargic Skin: ecchymosis Results Result Diagram: 02/03/17 0400 02/03/17 0400 Results 24 hrs Laboratory Tests Test 02/02/17 13:55 02/02/17 17:49 02/03/17 00:01 02/03/17 04:00 Bedside Glucose 105 112 123 Anion Gap 19 H Basophils # 0.1 Basophils % 0.3 Blood Urea Nitrogen 84 H Calcium Level 8.4 Carbon Dioxide Level 21 Chloride Level 97 Creatinine 3.03 H Eosinophils # 0.0 Eosinophils % 0.1 Gamma Glutamyl Transpeptidase 2360 H Glucose Level 101 Hematocrit 24.1 L Hemoglobin 8.1 L Lymphocytes # 1.4 Lymphocytes % 6.1 L Magnesium Level 1.9 Mean Corpuscular Hemoglobin 30.2 Mean Corpuscular Hemoglobin Concent 33.6 Mean Corpuscular Volume 89.9 Mean Platelet Volume 10.6 H Monocytes # 1.2 H Monocytes % 5.0 Neutrophils # 17.3 H Neutrophils % 75.3 Nucleated Red Blood Cells # 0.0 Nucleated Red Blood Cells % 0.0 Phosphorus Level 4.3 Platelet Count 335 Potassium Level 3.8 Red Blood Count 2.68 L Red Cell Distribution Width 19.3 H Sodium Level 133 L White Blood Count 23.0 H Test 02/03/17 05:49 Bedside Glucose 119 Medications Medications Current Medications Meropenem 100 ml @ 200 mls/hr Q12 IVPB Last administered on 02/03/17 08:44; Admin Dose 200 MLS/HR; Start 01/30/17 at 21:00 Caspofungin/ Sodium Chloride (Cancidas/NS) 250 ml @ 250 mls/hr Q24H IVPB Last administered on 02/02/17 18:43; Admin Dose 250 MLS/HR; Start 01/31/17 at 18:00 Lansoprazole (Prevacid) 30 mg BID@06,18 GTB Last administered on 02/03/17 05:50 ; Admin Dose 30 MG; Start 01/31/17 at 18:00 Ascorbic Acid (Vitamin C) 500 mg DAILY GTB Last administered on 02/03/17 08:44 ; Admin Dose 500 MG; Start 02/01/17 at 09:00 Folic Acid (Folic Acid) 1 mg DAILY GTB Last administered on 02/03/17 08:46; Admin Dose 1 MG; Start 02/01/17 at 09:00 Hydralazine HCl (Apresoline) 10 mg Q6H PRN IV ELEVATED BLOOD PRESSURE; Start at 13:00 Acetaminophen/ Hydrocodone Bitart ([place] (5/325)) 1 tab Q6H PRN GTB PAIN LEVEL 1-5 Last administered on 02/03/17 03:28; Admin Dose 1 TAB; Start 01/31/17 at 13: 00 Acetaminophen/ Hydrocodone Bitart ([place] (5/325)) 2 tab Q6H PRN GTB PAIN LEVEL 6-10; Start 01/31/17 at 13:00 Insulin Aspart (Novolog Insulin Pen) NOVOLOG *MILD* ALGORITHM Q6 SC Last administered on 02/02/17 00:32; Admin Dose 1 UNIT; Start 01/31/17 at 18:00 Lactobacillus Acidoph/Bulgaricus (Floranex) 1 tab TID GTB Last administered on 02/03/17 08:44; Admin Dose 1 TAB; Start 01/31/17 at 13:00 Morphine Sulfate (morphine) 1 mg Q2H PRN IV PAIN LEVEL 1-5; Start 01/31/17 at 13 :00 Morphine Sulfate (morphine) 2 mg Q2H PRN IV SEVERE PAIN LEVEL 7-10; Start at 13:00 Nystatin (Nystatin Cr) 1 applic BID TOP Last administered on 02/03/17 08:49; Admin Dose 1 APPLIC; Start 01/31/17 at 21:00 Nystatin (Nystatin Powder) 1 applic BID TOP Last administered on 02/03/17 09:03 ; Admin Dose 1 APPLIC; Start 01/31/17 at 21:00 Olanzapine (Zyprexa Zydis) 2.5 mg BID SL Last administered on 02/03/17 08:45; Admin Dose 2.5 MG; Start 01/31/17 at 21:00 Ondansetron HCl (Zofran Inj) 4 mg Q6H PRN IV NAUSEA AND/OR VOMITING; Start 01/31 at 13:00 Quetiapine Fumarate (Seroquel) 25 mg Q6 PRN GTB PSYCHOSIS; Start 01/31/17 at 13: 00 Polyethylene Glycol (Miralax) 17 gm DAILY PRN GTB CONSTIPATION; Start 01/31/17 at 13:00 Zinc Sulfate (Zinc Sulfate) 220 mg DAILY GTB Last administered on 02/03/17 08: 55; Admin Dose 220 MG; Start 02/01/17 at 09:00 Miscellaneous Information 1 ea NOTE XX ; Start 01/31/17 at 14:00 Glucose (Glutose) 15 gm Q15M PRN PO DECREASED GLUCOSE; Start 01/31/17 at 14:00 Glucose (Glutose) 22.5 gm Q15M PRN PO DECREASED GLUCOSE; Start 01/31/17 at 14:00 Dextrose (D50w Syringe) 25 ml Q15M PRN IV DECREASED GLUCOSE; Start 01/31/17 at 14:00 Dextrose (D50w Syringe) 50 ml Q15M PRN IV DECREASED GLUCOSE; Start 01/31/17 at 14:00 Glucagon (Glucagen) 1 mg Q15M PRN IM DECREASED GLUCOSE; Start 01/31/17 at 14:00 Glucose (Glutose) 15 gm Q15M PRN BUCCAL DECREASED GLUCOSE; Start 01/31/17 at 14: 00 Diltiazem HCl (Cardizem) 30 mg Q6 GTB Last administered on 02/02/17 18:42; Admin Dose 30 MG; Start 01/31/17 at 18:00 Sodium Bicarbonate (Sodium Bicarbonate Tab) 650 mg Q8 PO Last administered on 05:50; Admin Dose 650 MG; Start 02/01/17 at 09:00 IV Flush (NS 10 ml) 10 ml PRN PRN IV IV PROTOCOL; Start 02/02/17 at 13:00 VERN WOODS M.D. Feb 03, 2017 09:42
[2017-02-03] MEDS: CASPOFUNGIN 50 MG in SOD CHLORIDE 0.9% 250 ML IVPB SCH (19:02)
--- NOTE | 2017-02-04 10:00 | RADRPT ---
PROCEDURE: Nuclear medicine whole-body white blood cell scan CLINICAL INDICATION: Infection. Elevated white blood cell count. Fevers. TECHNIQUE: 550 microCi of Indium-111 labeled white blood cells was administered intravenously. Pl tobi imaging of the whole-body was performed in the anterior and posterior views. 24 uptake images were obtained. Images were reviewed on the high resolution PACS workstation. COMPARISON: None available FINDINGS: Imaging was performed at 24 hours. However, the nurse determine the patient was in too much distres s and could not complete the exam. Therefore, the exam was aborted by the nurse. IMPRESSION: 1. Incomplete nondiagnostic scan. 2. Study aborted due to patient distress. RPTAT: HMJB .Milind Green MD, MD Date Time Electronically viewed and signed by .Milind Green MD, on 02/04/2017 10:00 .B/
[2017-02-04 17:52] LABS: MICROALBUMIN 2.8 mg/dL
== END 2017-02-03 22:05 | DRG 871 ==
LOC: ICU 13:13
PROVIDERS: ADMIT Internal Medicine; ATTEND Internal Medicine
PROC: 5A1945Z Respiratory Ventilation, 24-96 Consecutive Hours (ICD-10-PCS; principal; 2017-01-30)
PROC: 02HV33Z Insertion of Infusion Device into Superior Vena Cava, Percutaneous Approach (ICD-10-PCS; 2017-01-30)
PROC: 0DJ08ZZ Inspection of Upper Intestinal Tract, Via Natural or Artificial Opening Endoscopic (ICD-10-PCS; 2017-01-31)
PROC: 0DJD8ZZ Inspection of Lower Intestinal Tract, Via Natural or Artificial Opening Endoscopic (ICD-10-PCS; 2017-01-31 10:00)
PROC: 30233N1 Transfusion of Nonautologous Red Blood Cells into Peripheral Vein, Percutaneous Approach (ICD-10-PCS; 2017-02-02)
DX: A41.9 Sepsis, unspecified organism (principal); N17.0 Acute kidney failure with tubular necrosis; E43 Unspecified severe protein-calorie malnutrition; G93.41 Metabolic encephalopathy; I50.33 Acute on chronic diastolic (congestive) heart failure; J96.10 Chronic respiratory failure, unspecified whether with hypoxia or hypercapnia; A04.7 Enterocolitis due to Clostridium difficile; K92.2 Gastrointestinal hemorrhage, unspecified; E87.1 Hypo-osmolality and hyponatremia; B37.49 Other urogenital candidiasis; Z68.42 Body mass index [BMI] 45.0-49.9, adult; K64.9 Unspecified hemorrhoids; D50.0 Iron deficiency anemia secondary to blood loss (chronic); Z93.1 Gastrostomy status; R13.10 Dysphagia, unspecified; B96.5 Pseudomonas (aeruginosa) (mallei) (pseudomallei) as the cause of diseases classified elsewhere; R65.20 Severe sepsis without septic shock; J20.2 Acute bronchitis due to streptococcus; I11.0 Hypertensive heart disease with heart failure; I48.2 Chronic atrial fibrillation
CPT/HCPCS: 36430; 36569; 36600; 71010; 76775; 76937; 78806; 80048; 80076; 81001; 81003; 82043; 82728; 82803; 82962; 82977; 83540; 83605; 83735; 84100; 84155; 84300; 85014; 85018; 85025; 85610; 85730; 86850; 86900; 86901; 86920; 87081; 94003; A9570; C1769; C9113; J0886; J1815; J1940; J2185; J7042; J7050; P9016

== ENCOUNTER 2017-04-20 10:30 | Day surgery (SDC) | payer OTHER ==
[~2017-04-20 10:30] MED LIST: ACID1TAB14 PO; ASC500 PO; CARSR60 PO; FLUC100T39 IVPB; FOLI-49 PO; FURO40TA4 PO; HYDR-3670 IV*; HYDR-902 PO; HYDR-906 PO; INSU100C3 SQ; LANS30CA PO; LISI10TA2 PO; MERO500V2 IVPB; MORP1SYR2 IV; MORP2SYR IV; NYST15OI12 TOP; NYST1POW22 TOPICAL; OLAN5TAB5 SL; ONDA4SOL2 IV; POLY17PO6 PO; QUET25TA26 PO; SPIR1TAB PO; ZINC50TA2 PO; [UNRECOGNIZED DRUG - CODE] IV; [UNRECOGNIZED DRUG - CODE] IVPB
--- NOTE | 2017-04-20 18:59 | OPR ---
DATE OF OPERATION: 04/20/2017 PREOPERATIVE DIAGNOSIS: Renal failure. POSTOPERATIVE DIAGNOSIS: Renal failure. OPERATION PERFORMED: 1. Right internal jugular vein tunneled hemodialysis catheter placement. 2. Ultrasound guidance into the central vein. 3. Fluoroscopy. 4. Superior venacavogram. 5. Interpretation and supervision of superior venacavogram. SURGEON: Ronn Proctor MD ANESTHESIA: Local plus IV sedation. CONSENT: Risks, benefits, complications, alternative therapies explained to the patient and the [facility], consent obtained. OPERATIVE TECHNIQUE: The patient was placed in supine position, prepped and draped in usual sterile fashion, 1% lidocaine was used throughout the operation for local anesthesia. Under ultrasonic kristina dance, access was gained in the right internal jugular vein. Guidewire was advanced through without any difficulty. Subcutaneous tissues dilated. A 24 cm tunneled hemodialysis catheter was brought into the subcutaneous tunnel, advanced into the right internal jugular vein and superior vena cava, all under fluoroscopic guidance. The tip was placed at the junction of the superior vena cava and r ight atrium. Contrast venography was done which showed catheter in good position, no extravasation. The catheter was secured to skin using 2-0 nylon sutures. The neck site and the exit site were cl osed using a single 3-0 Vicryl suture in interrupted fashion. The patient tolerated the procedure w ell. Dictated By: RONN JACKSON/HAFSA Conf#: [id number] DID#: [id number]
== END 2017-04-20 12:30 | disposition other institution (70) ==
LOC: CCL 10:30 → SDS 10:30 → CCL 12:30
PROVIDERS: ATTEND Thoracic Surgery (Cardiothoracic Vascular Surgery)
DX: N19 Unspecified kidney failure (principal)
CPT/HCPCS: 94002

== ENCOUNTER → 2017-07-01 | Outpatient (CLI) | payer MEDICARE, BC ==
[~2017-07-01] MED LIST changes: +BARIUM SULFATE 135 ML (E-Z HD) PO ONE; +BARIUM SULFATE 454 GM TUBE (E-Z PASTE) PO ONE
--- NOTE | 2017-07-01 16:57 | RADRPT ---
PROCEDURE: Video-fluoroscopy swallowing study. CLINICAL INDICATION: Dysphagia. TECHNIQUE: Fluoroscopic guided video swallowing study was done in conjunction with the speech ther apist. The study was confined to the oral, pharyngeal, and cervical phases of the swallowing mechani sm. 3.4 minutes of fluoroscopy time was used. 30 series of images were obtained. COMPARISON: No prior study is available for comparison. FINDINGS: There is no evidence of aspiration during the exam. 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 IMPRESSION: 1. No aspiration during swallowing. 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 Please refer to the speech therapist's recommendations for future feedings. RPTAT: QQ .Thanh Shaffer MD, MD Date Time Electronically viewed and signed by .Thanh Shaffer MD, on 07/01/2017 16:56 .R/
== END | disposition home or self-care (01) ==
LOC: RAD 11:52
PROVIDERS: ATTEND Internal Medicine
DX: R13.10 Dysphagia, unspecified (principal)
CPT/HCPCS: 74230